=== PATIENT | female | born 1960 | race Caucasian/White ===

== ENCOUNTER → 2016-07-08 | Day surgery (SDC) | payer BC ==
[2016-05-14 08:17] VITALS: BMI 32.0
[2016-06-24 12:01] VITALS: BMI 31.0
[~2016-07-08] VITALS: Ht 157.5 cm; Wt 78.2 kg
[~2016-07-08] MED LIST: CHOL20007 PO; FENTANYL CITRATE INJ 50 MCG/1 ML 2 ML VIAL ONE; LEVO75TA5 PO; LIDOCAINE HCL 2% 2 ML VIAL (20MG/ML) ONE; PROPOFOL IV EMULSION 10 MG/ML 20 ML VIAL IV ONE; SODIUM CHLORIDE 0.9% 500ML 500 ML IV ONE
[2016-07-08 13:12] VITALS: Ht 157.5 cm; Wt 78.2 kg
[2016-07-08 13:21] VITALS: TEMP 36.6
--- NOTE | 2016-07-08 13:58 | Endo History and Physical ---
History & Physical Date of Service: Jul 08, 2016. Chief Complaint: screening Referring Physician: Dr. Garrison History of Present Illness 56 yo CF who presents for screening colonoscopy. Past Surgical History Hx Cardiac Surgery: No Hx Internal Defibrillator: No Hx Pacemaker: No Hx Abdominal Surgery: Yes (HERNIA REPAIR, ) Hx of Implantable Prosthesis: No Hx Post-Op Nausea and Vomiting: No Hx Cancer Surgery: No Hx Thoracic Surgery: No Hx Orthopedic: Yes (RT ULNAR NERVE REPAIR) Hx Urinary Tract Surgery: No Family History None Social History Smoking Status: Never Smoker Hx Substance Use: No Hx Alcohol Use: Yes (RARELY) Allergies Coded Allergies: No Known Allergies (Verified , 06/24/16) Current Medications Reported Home Medications Medications Dose Route/Sig Max Daily Dose Days Date Category Vitamin D3 (Cholecalciferol) 2,000 Unit Tab 4,000 Units PO HS 02/12/16 Reported Levothyroxine Sodium 75 Mcg Tab 75 Mcg PO QAM 02/12/16 Reported Vital Signs Weight (Kilograms): 78.18 Height (Feet): 5 Height (Inches): 2 Date Time Temp Pulse Resp B/P Pulse Ox O2 Delivery O2 Flow Rate FiO2 07/08/16 13:21 36.6 85 18 138/74 94 Room Air Physical Exam General Appearance: WD/WN, no apparent distress Respiratory/Chest: Auscultation: breath sounds normal Cardiovascular: Heart Auscultation: RRR Abdomen: Bowel Sounds: normal Inspection & Palpation: soft, non-distended, no tenderness, guarding & rebound Assessment and Plan Assessment: 56 yo CF who presents for screening colonoscopy. Plan: Proceed with colonoscopy.
--- NOTE | 2016-07-08 14:21 | Discharge Instructions ---
Endoscopy Patient Instructions Date / Procedure(s) Performed Jul 08, 2016. Colonoscopy Allergy Information Coded Allergies: No Known Allergies (Verified , 06/24/16) Discharge Date / Findings Jul 08, 2016. Internal hemorrhoids Medication Instructions OK to resume all medications today as prescribed Reported Home Medications Medications Dose Route/Sig Max Daily Dose Days Date Category Vitamin D3 (Cholecalciferol) 2,000 Unit Tab 4,000 Units PO HS 02/12/16 Reported Levothyroxine Sodium 75 Mcg Tab 75 Mcg PO QAM 02/12/16 Reported Provider Instructions Activity Restrictions - No exercising or heavy lifting for 24 hours. - Do not drink alcohol the day of the procedure. - Do not drive a car or operate machinery until the day after the procedure. - Do not make any important decisions or sign important papers in 24 hours after the procedure. Following Day: - Return to full activity which may include returning to work/school. Diet Start your diet with liquids and light foods (jello, soup, juice, toast). Then eat your usual diet if not nauseated. Treatment For Common After Affects For mild abdominal pain, bloating, or excessive gas: - Rest - Eat lightly - Lie on right side Follow-Up Information Follow-up with Dr. Garrison as scheduled Anesthesia Information What You Should Know You have had a procedure that required some medicine to reduce anxiety and discomfort. This treatment is called moderate sedation. After receiving the treatment, you may be sleepy, but you will be able to breathe on your own. The effects of the treatment may last for several hours. Follow these instructions along with Activity/Diet recommendations noted above: * Do NOT do anything where dizziness or clumsiness would be dangerous. * Rest quietly at home today, then you can be up and about tomorrow. * Have a responsible person stay with you the rest of today. * You may have had an I.V. today. If so, you may take the dressing off later today. Recommendations Call your doctor if: * Trouble breathing * Continuous vomiting for more than 24 hours * Temperature above 101 degrees * Severe abdominal pain or bloating * Pain not relieved by pain medicine ordered * There is increased drainage or redness from any incision * A large amount of rectal bleeding greater than 2-3 tablespoons. (If you had a polyp/s removed or have hemorrhoids, a small amount of blood - from the rectum is to be expected.) * You have any unanswered questions or concerns. IN THE EVENT OF A SERIOUS EMERGENCY, GO TO THE NEAREST EMERGENCY ROOM Your discharge instructions were prepared by provider Marty Araujo. Patient Instructions Signature Page Opal Mcelroy Patient (or Guardian) Signature/Date: I have read and understand the instructions given to me by my caregivers. Caregiver/RN/Doctor Signature/Date: The above-named patient and/or guardian has received patient instructions on this date. + Original Patient Signature Page (only) stays with chart. Please make copy for patient.
--- NOTE | 2016-07-08 14:23 | GI REPORT ---
Procedure Date: 07/08/2016 1:45 PM Procedure: Colonoscopy Indications: Screening for colorectal malignant neoplasm Medicines: Monitored Anesthesia Care Complications: No immediate complications. Estimated Blood Loss: Estimated blood loss: none. Procedure: Pre-Anesthesia Assessment: - Prior to the procedure, a History and Physical was performed, and patient medications and allergies were reviewed. The patient's tolerance of previous anesthesia was also reviewed. The risks and benefits of the procedure and the sedation options and risks were discussed with the patient. All questions were answered, and informed consent was obtained. Prior Anticoagulants: The patient has taken no previous anticoagulant or antiplatelet agents. ASA Grade Assessment: II - A patient with mild systemic disease. After reviewing the risks and benefits, the patient was deemed in satisfactory condition to undergo the procedure. After I obtained informed consent, the scope was passed under direct vision. Throughout the procedure, the patient's blood pressure, pulse, and oxygen saturations were monitored continuously. The scope was introduced through the anus and advanced to the terminal ileum. The colonoscopy was performed without difficulty. The patient tolerated the procedure well. The quality of the bowel preparation was good. The terminal ileum, ileocecal valve, appendiceal orifice, and rectum were photographed. Findings: Non-bleeding internal hemorrhoids were found during retroflexion. The hemorrhoids were small. The exam was otherwise without abnormality. Impression: - Non-bleeding internal hemorrhoids. - The examination was otherwise normal. - No specimens collected. Recommendation: - Resume previous diet. - Continue present medications. - Repeat colonoscopy in 10 years for surveillance. - Return to primary care physician as previously scheduled. Marty Araujo, 07/08/2016 2:24:11 PM This report has been signed electronically. Note Initiated On: 07/08/2016 1:45 PM I attest to the content of the Intraoperative Record and orders documented therein, exceptions below
[2016-07-08 14:52] VITALS: BP 109/75; PULSE 66; O2SAT 96
--- NOTE | 2016-07-08 15:01 | Anesthesiology Progress Note ---
Anesthesia Post Op Note Date & Time Jul 08, 2016 at 15:01 Vital Signs Pain Intensity: 0 Vital Signs Past 12 Hours Date Time Temp Pulse Resp B/P Pulse Ox O2 Delivery O2 Flow Rate FiO2 07/08/16 14:37 77 16 112/79 95 Room Air 07/08/16 14:30 82 16 111/74 95 Room Air 07/08/16 13:21 36.6 85 18 138/74 94 Room Air Notes Mental Status: alert / awake / arousable, participated in evaluation Pt Amnestic to Procedure: Yes Nausea / Vomiting: adequately controlled Pain: adequately controlled Airway Patency, RR, SpO2: stable & adequate BP & HR: stable & adequate Hydration State: stable & adequate Anesthetic Complications: no major complications apparent
== END | disposition home or self-care (01) ==
LOC: C.GI 13:00
PROVIDERS: ATTEND Internal Medicine
DX: Z12.11 Encounter for screening for malignant neoplasm of colon (principal); K64.8 Other hemorrhoids

== ENCOUNTER → 2016-11-18 | Outpatient (CLI) | payer BC ==
[~2016-11-18] MED LIST changes: -FENTANYL CITRATE INJ 50 MCG/1 ML 2 ML VIAL ONE; -LIDOCAINE HCL 2% 2 ML VIAL (20MG/ML) ONE; -PROPOFOL IV EMULSION 10 MG/ML 20 ML VIAL IV ONE; -SODIUM CHLORIDE 0.9% 500ML 500 ML IV ONE
[2016-11-18 16:23] LABS: THYROID STIMULATING HORMONE 0.616 uIu/ml (0.300-4.500)
== END | disposition home or self-care (01) ==
LOC: C.LAB1850 14:40
PROVIDERS: ATTEND Physician Assistant
DX: E03.9 Hypothyroidism, unspecified (principal)

== ENCOUNTER → 2016-12-04 | Outpatient (CLI) | payer BC ==
[2016-12-04 12:17] LABS: BASO % 0.4 %; BASO ABS # 0.03 K/uL (0-0.2); COMPLETE YES; EOS % 1.6 %; HEMATOCRIT 46.2 % (37-47); IG% 0.3 %; LYMPH % 24.4 %; LYMPH ABS # 1.85 K/uL (1.2-3.4); MEAN CELL VOLUME 92.2 fL (80-100); MEAN CORPUSCULAR HEMOGLOBIN 31.1 pg (25-34); MEAN CORPUSCULAR HGB CONC 33.8 g/dl (32-36); MEAN PLATELET VOLUME 10.1 fL (7.4-10.4); MONO % 7.1 %; NEUT % 66.2 %; PLATELET COUNT 356 K/uL (130-400); RED BLOOD COUNT 5.01 M/uL (4.2-5.4); WHITE BLOOD COUNT 7.58 K/uL (4.8-10.8)
[2016-12-04 12:30] LABS: ESTIMATED AVERAGE GLUCOSE 111 mg/dl; HA1C FLAG Normal (Normal)
[2016-12-04 12:47] LABS: ALT/SGPT 26 U/L (12-78); AST/SGOT 20 U/L (15-37); BLOOD UREA NITROGEN 10 mg/dl (7-18); BUN/CREATININE RATIO 13.1 (10-20); CALCIUM 9.7 mg/dl (8.5-10.1); CARBON DIOXIDE 29 mmol/L (21-32); CHLORIDE 108 mmol/L (98-107); CREATININE 0.74 mg/dl (0.60-1.20); GLUCOSE 86 mg/dl (70-99); MAGNESIUM 2.4 mg/dl (1.8-2.4); POTASSIUM 3.7 mmol/L (3.5-5.1); SODIUM 143 mmol/L (136-145)
[2016-12-04 12:52] LABS: ALB/GLOB RATIO 1.1 (0.9-2); ALKALINE PHOSPHATASE 68 U/L (45-117); CHOLESTEROL 196 mg/dl (0-200); CHOLESTEROL/HDL RATIO 3.7; HDL CHOLESTEROL 53 mg/dl; LDL CHOLESTEROL CALCULATED 117 mg/dl; TRIGLYCERIDES 129 mg/dl (0-150); VERY LOW DENSITY LIPOPROT CALC 26 mg/dl
== END | disposition home or self-care (01) ==
LOC: C.LAB1850 11:22
PROVIDERS: ATTEND Nurse Practitioner Adult Health
DX: Z00.00 Encounter for general adult medical examination without abnormal findings (principal); R20.0 Anesthesia of skin; E55.9 Vitamin D deficiency, unspecified; R29.898 Other symptoms and signs involving the musculoskeletal system; Z11.59 Encounter for screening for other viral diseases; Z86.19 Personal history of other infectious and parasitic diseases

== ENCOUNTER → 2017-01-27 | Outpatient (CLI) | payer BC | END | disposition home or self-care (01) | LOC: C.CPL 15:03 | PROVIDERS: ATTEND Orthopaedic Surgery | DX: S83.242D Other tear of medial meniscus, current injury, left knee, subsequent encounter (principal); X58.XXXD Exposure to other specified factors, subsequent encounter ==

== ENCOUNTER → 2017-04-09 | Outpatient (CLI) | payer BC ==
[2017-04-09 17:07] LABS: THYROID STIMULATING HORMONE 1.56 uIu/ml (0.300-4.500)
== END | disposition home or self-care (01) ==
LOC: C.LAB1850 15:21
PROVIDERS: ATTEND Physician Assistant
DX: E03.9 Hypothyroidism, unspecified (principal)

== ENCOUNTER 2019-10-21 11:14 | Inpatient (IN) ==
--- NOTE | 2019-10-02 14:12 | PAT Medication Instructions ---
Medication Instructions Date of Service October 02, 2019 Home Medications Medication Instructions Recorded duloxetine 60 mg capsule,delayed 60 mg PO QAM #90 cap 09/29/19 release cholecalciferol (vitamin D3) 50 mcg (2,000 unit) tablet 4,000 units PO QAM cyanocobalamin (vitamin B-12) 1,000 mcg capsule 1,000 mcg PO QAM acetaminophen [Tylenol] 650 mg PO DIRECTED PRN duloxetine 60 mg capsule,delayed release 60 mg PO QAM levothyroxine 50 mcg PO Q OTHER DAY levothyroxine 75 mcg PO Q OTHER DAY magnesium chloride [Slow-Mag] 71.5 mg PO DAILY zaleplon 10 mg PO DAILY PRN DO NOT take the morning of surgery magnesium chloride [Slow-Mag] 71.5 mg PO DAILY cholecalciferol (vitamin D3) 50 mcg (2,000 unit) tablet 4,000 units PO QAM cyanocobalamin (vitamin B-12) 1,000 mcg capsule 1,000 mcg PO QAM Take morning of surgery With a small sip of water, OTHERWISE NOTHING TO EAT OR DRINK AFTER MIDNIGHT: levothyroxine acetaminophen [Tylenol] 650 mg PO DIRECTED PRN (okay to take up to 4 hours prior to surgery if needed) duloxetine 60 mg capsule,delayed release 60 mg PO QAM Take evening before surgery acetaminophen [Tylenol] 650 mg PO DIRECTED PRN (if needed) zaleplon 10 mg PO DAILY PRN (if needed) Other Notes If you have any questions please call us at [phone] or [phone] or [phone] or [phone]
--- NOTE | 2019-10-04 08:59 | Anesthesiology Consultation ---
Date of Service October 04, 2019 Assessment & Plan (1) Encounter for pre-operative examination: Chart Review Chart Review: Acceptable Risk for Surgery (pending PCP clearance (seen 09/28- PCP awaiting preop testing) and Covid testing 10/17) and Patient seen in Pre Admission Testing Pt states she has Covid testing three days (10/17) prior to surgery. Educated on social distancing and to quarantine herself and household members. Teaching & Discussion Pre-Anesthesia Teaching/Discussion Notes: Instructed NPO after midnight before surgery,except medications with 15 cc of water. Medication instructions provided according to the PAT guidelines. History Surgery Operation Date: 10/21/19 10:10 Proposed Procedures p Right Total Knee Arthroplasty - Rashaad Menendez MD Height/Weight Height: 5 ft 1 in Weight: 80.2 kg Allergies Allergy/AdvReac Type Severity Reaction Status Date / Time No Known Drug Allergies Allergy Verified 10/01/19 14:21 Medications Home Medications Medication Instructions Recorded Confirmed Last Taken cholecalciferol (vitamin D3) 50 4,000 units PO QAM tab 11/27/18 10/01/19 02/04/19 mcg (2,000 unit) tablet cyanocobalamin (vitamin B-12) 1,000 mcg PO QAM #30 cap 11/27/18 10/01/19 02/04/19 1,000 mcg capsule acetaminophen [Tylenol] 650 mg PO DIRECTED PRN 02/03/19 10/01/19 Unknown duloxetine 60 mg capsule,delayed 60 mg PO QAM #90 cap 09/29/19 10/01/19 Unknown release levothyroxine 50 mcg PO Q OTHER DAY 10/01/19 10/01/19 Unknown levothyroxine 75 mcg PO Q OTHER DAY 10/01/19 10/01/19 Unknown magnesium chloride [Slow-Mag] 71.5 mg PO DAILY 10/01/19 10/01/19 Unknown zaleplon 10 mg PO DAILY PRN 10/01/19 10/01/19 Unknown Past Medical History Medical History Chronic back pain Hepatitis B DX 20 YRS AGO CARRIER FOR HEPATITIS B- DENIES KNOWN HEP B INFECTION History of depression Hypothyroidism TMJ click NO JAW LOCKING Exercise / Class Metabolic Activity II 4-5 Yardwork/Stairs/Walk up hill (ONE FLIGHT STAIRS - NO CHEST PAIN OR SOB ) Past Family History Family History Unknown Hypertension Stroke Myocardial infarction FHx: allergies Sinusitis Cardiac disorder Hypothyroidism Father , Mid 50's Kidney stones FHx: kidney cancer Hypertension Stroke Myocardial infarction Grandmother No problems noted. Grandmother (Maternal) Breast cancer Denies family history of Ovarian cancer Prostate cancer Colorectal cancer Past Surgical History Surgical History H/O section H/O hernia repair H/O tubal ligation History of arthroscopy BILAT KNEES History of colonoscopy Hx of biopsy THYROID Hx of biopsy LIVER Hx of decompression of ulnar nerve RIGHT [place] with [place] of [place] [facility] [place] Anesthesia History No Hx of Anesthesia Complications and No Family Hx of Anesthesia Complications (BROTHER SLOW TO WAKE- NO RE-INTBUATION OR ICU STAY ) History of PONV No Hx of PONV and No Hx of Motion Sickness Social History Smoking Status: Never smoker Do You Dip or Chew Tobacco: No Hx Alcohol Use: Yes alcohol intake frequency: holidays/special occasions only Hx Substance Use: No substance use type: does not use Review of Systems REFLUX- ONLY AT NIGHT IF EATING LATE SNORING- NO WITNESSED APNEA - NO HX OF SLEEP STUDY Patient denies chest pain, shortness of breath, dyspnea on exertion, cough, wheezing, palpitations. No hx of seizures, stroke, [place]. No hx of blood clots or blood transfusions Physical Exam Vital Signs VITALS BP 113/77 P 85 TEMP 98.2 SP02 97% RESP 16 Constitutional no acute distress ENMT Mouth: no TMJ clicking Thyromental Distance: > or= 3.5 Finger Breadths (3.5) Mallampati Class: III Crowns to molars and side teeth- no front teeth capped or crowned. Denies missing teeth Neck neck extension not limited Respiratory normal respiratory effort; no respiratory distress Auscultation: lungs clear to auscultation bilaterally; no wheezes Cardiovascular Rate/Rhythm: regular rate and regular rhythm Heart Sounds: no murmur Vessels: no carotid bruit Musculoskeletal Spine: no pain with cervical ROM Neurologic moves all extremities Psychiatric Orientation: alert Testing Laboratory Results 10/04/19 09:15 10/04/19 09:15 PT 10.9 Seconds (9.0-12.0) 10/04/19 09:15 INR 1.0 (0.9-1.1) 10/04/19 09:15 APTT 29.6 Seconds (21.0-31.0) 10/04/19 09:15 Hemoglobin A1c 5.7 % (4.5-5.6) H 10/04/19 09:15 Urine Color Yellow 10/04/19 09:15 Urine Appearance Clear (Clear) 10/04/19 09:15 Urine pH 5.5 (4.5-7.5) 10/04/19 09:15 Ur Specific [place] 1.028 (1.000-1.030) 10/04/19 09:15 Urine Protein Negative (Negative) 10/04/19 09:15 Urine Glucose (UA) Negative (Negative) 10/04/19 09:15 Urine Ketones Negative (Negative) 10/04/19 09:15 Urine Nitrite Negative (Negative) 10/04/19 09:15 Ur Leukocyte Esterase Negative (Negative) 10/04/19 09:15 Blood Type O Positive 10/04/19 09:15 Antibody Screen NEGATIVE 10/04/19 09:15 Electrocardiogram Date: 09/29/19 Findings: + NSR @ (86) Chest X-Ray Date: 10/04/19 Findings: + NAD Stress Test Date: 11/29/14 Type: exercise (Stress ECHO) Resting EF: 60% Resting LV Function: normal Resting RWMA: + none Valvular Disease: no significant valvular disease 10.8 METS achieved. MPHR= 100%. Normal stress ECHO. No EKG changes. No exercise induced chest pain. Normal baseline ECHO.
[2019-10-04 09:40] LABS: Appearance Urine Clear (Clear); Basophils # (auto) 0.03 K/uL (0-0.2); Basophils % (auto) 0.6 %; Bilirubin Urine Negative (Negative); Blood Urine Negative (Negative); Color Urine Yellow; Eosinophils # (auto) 0.12 K/uL (0-0.5); Eosinophils % (auto) 2.2 %; Glucose Urine UA Negative (Negative); Hematocrit (blood only) 42.6 % (37-47); Hemoglobin 14.2 g/dL (12.0-16.0); Immature Granulocytes # (auto) 0.02 K/uL (0.00-0.02); Immature Granulocytes % (auto) 0.4 %; Ketones Urine Negative (Negative); Leukocyte Esterase Urine Negative (Negative); Lymphocytes # (auto) 1.38 K/uL (1.2-3.4); Lymphocytes % (auto) 25.3 %; Mean Corpuscular Hemoglobin 30.7 pg (25-34); Mean Corpuscular Hgb Conc 33.3 g/dL (32-36); Mean Platelet Volume 9.9 fL (7.4-10.4); Monocytes # (auto) 0.38 K/uL (0.11-0.59); Neutrophils # (auto) 3.52 K/uL (1.4-6.5); Neutrophils % (auto) 64.5 %; Nitrite Urine Negative (Negative); Platelet Count 311 K/uL (130-400); Protein Urine Negative (Negative); RDW Coefficient of Variation 13.1 % (11.5-14.5); RDW Standard Deviation 44.4 fL (36.4-46.3); Red Blood Count 4.63 M/uL (4.2-5.4); Specific Gravity Urine 1.028 (1.000-1.030); Urobilinogen Urine Negative (Negative); White Blood Count 5.45 K/uL (4.8-10.8); pH Urine 5.5 (4.5-7.5)
--- NOTE | 2019-10-04 09:43 | XRay Report ---
XR chest Pre-admission PA/Lat CLINICAL HISTORY: Preoperative evaluation. COMPARISON STUDY: No previous studies for comparison. FINDINGS: Lung volumes are normal. Lungs are clear. There is no pneumothorax or pleural effusion. Car diac size is normal. Mediastinal contours are normal. There is no evidence for pulmonary edema. IMPRESSION: No acute cardiopulmonary findings. ACT 112: Negative or not required by law. Electronically signed by: Asif Reynoso M.D. 10/04/2019 9:41 AM
[2019-10-04 09:52] LABS: Partial Thromboplastin Ratio 1.1; Partial Thromboplastin Time 29.6 Seconds (21.0-31.0); Prothrombin Time 10.9 Seconds (9.0-12.0)
[2019-10-04 10:04] LABS: Albumin Level 3.6 gm/dl (3.4-5.0); BUN Creatinine Ratio 19.3 (10-20); Calcium 8.6 mg/dl (8.5-10.1); Creatinine Clr Calc Pharmacy 76.3 ml/min; Est GFR (African American) 97.8; Est GFR (Non-African American) 84.4; Potassium 3.8 mmol/L (3.5-5.1)
[2019-10-04 10:13] LABS: Estimated Average Glucose 117 mg/dl; Hemoglobin A1C 5.7 % (4.5-5.6)
--- NOTE | 2019-10-15 13:49 | History & Physical Report ---
Date of Service October 15, 2019 Assessment & Plan (1) Primary osteoarthritis of right knee: Treatment options discussed. Patient has failed conservative measures as above. Risks, benefits and alternatives to surgery including but not limited to infection, DVT, pain, stiffness, need for revision surgery, damage to blood vessels, damage to nerves, PE, , were discussed with the patient and they wish to proceed. Plan will be for right total knee arthroplasty at [facility] on 10/21/19. COVID testing will be completed preoperatively. Plan for aspirin 81mg BID x 1 mo post operatively as DVT prophylaxis. Will plano n HHPT upon discharge from the hospital. All questions answered. She will follow up post operatively. History of Present Illness Chief Complaint: Right knee pain Primary Care Provider: Percy Mario III, PART[employer] DEM[employer]STRATOR 59 year old female with PMHx significant for hypothyroidism, back pain, and diagnosed as carrier of Hep B who presents with ongoing right knee pain. She has failed conservative measures including injections, rehab, and anti- inflammatories. Pain is affecting her ability to carry out her daily activities. She would like to proceed with right knee replacement. Patient denies headaches, sweats, fevers, chills, double vision, blurred vision, cough, sore throat, dysphagia, chest pain, sob, wheezing, n/v/d/c, numbness, tingling, fatigue, urinary symptoms, mood disorders. ROS positive for right knee pain and stiffness. Allergies Allergy/AdvReac Type Severity Reaction Status Date / Time No Known Drug Allergies Allergy Verified 10/01/19 14:21 Home Medications Home Medications Medication Instructions Recorded Confirmed Type cholecalciferol (vitamin D3) 50 4,000 units PO QAM tab 11/27/18 10/01/19 History mcg (2,000 unit) tablet cyanocobalamin (vitamin B-12) 1,000 mcg PO QAM #30 cap 11/27/18 10/01/19 History 1,000 mcg capsule acetaminophen [Tylenol] 650 mg PO DIRECTED PRN 02/03/19 10/01/19 History duloxetine 60 mg capsule,delayed 60 mg PO QAM #90 cap 09/29/19 10/01/19 Rx release levothyroxine 50 mcg PO Q OTHER DAY 10/01/19 10/01/19 History levothyroxine 75 mcg PO Q OTHER DAY 10/01/19 10/01/19 History magnesium chloride [Slow-Mag] 71.5 mg PO DAILY 10/01/19 10/01/19 History zaleplon 10 mg PO DAILY PRN 10/01/19 10/01/19 History Past Med/Surg History Medical History Chronic back pain Hepatitis B DX 20 YRS AGO CARRIER FOR HEPATITIS B- DENIES KNOWN HEP B INFECTION History of depression Hypothyroidism TMJ click NO JAW LOCKING Surgical History H/O section H/O hernia repair H/O tubal ligation History of arthroscopy BILAT KNEES History of colonoscopy Hx of biopsy THYROID Hx of biopsy LIVER Hx of decompression of ulnar nerve RIGHT Status post myringotomy with insertion of tube 02/05/2019 [facility] [place] Family History Unknown Hypertension Stroke Myocardial infarction FHx: allergies Sinusitis Cardiac disorder Hypothyroidism Father , Mid 50's Kidney stones FHx: kidney cancer Hypertension Stroke Myocardial infarction Grandmother No problems noted. 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 [employer] Feels Safe at Home: Yes Safety Concerns: Feels Safe At This Time Smoking Status: Never smoker Do You Dip or Chew Tobacco: No ; Second Hand Exposure: No ; Hx Alcohol Use: Yes Hx Substance Use: No Childhood Exposure to Second-Hand Smoke: No Dental Care, Regularly: Yes Physical Activity Frequency: 5-6 Times per Week Seatbelt Use: always Sunscreen Use: Yes Review of Systems All systems reviewed & are unremarkable except as noted in HPI & below Physical Exam Constitutional: well developed and well nourished; no acute distress Eyes: PERRL, conjunctivae normal, anicteric sclerae ENMT: external ear and nose normal, oropharynx normal Neck: trachea midline, no thyromegaly Respiratory: normal respiratory effort, lungs clear to auscultation Cardiovascular: RRR, no murmur, no edema Musculoskeletal: right knee: Medial joint line tenderness, mild effusion. ROM 1-125. Stable to valgus and varus stress. Positive Dl's. Skin: no rashes, warm and dry Neurologic: patellar DTR's 2+ bilat, sensation intact Psychiatric: A+Ox3, euthymic affect Results & Data Laboratory Results Lab Results 10/04/19 10/04/19 10/04/19 Range/Units 09:15 09:15 09:15 WBC 5.45 (4.8-10.8) K/uL RBC 4.63 (4.2-5.4) M/uL Hgb 14.2 (12.0-16.0) g/dL Hct 42.6 (37-47) % MCV 92.0 (80-100) fL MCH 30.7 (25-34) pg MCHC 33.3 (32-36) g/dL RDW Std Deviation 44.4 (36.4-46.3) fL RDW Coeff of Wilian 13.1 (11.5-14.5) % Plt Count 311 (130-400) K/uL MPV 9.9 (7.4-10.4) fL Immature Gran % (Auto) 0.4 % Neut % (Auto) 64.5 % Lymph % (Auto) 25.3 % [place] % (Auto) 7.0 % Eos % (Auto) 2.2 % Baso % (Auto) 0.6 % Immature Gran # (Auto) 0.02 (0.00-0.02) K/uL Neut # (Auto) 3.52 (1.4-6.5) K/uL Lymph # (Auto) 1.38 (1.2-3.4) K/uL [place] # (Auto) 0.38 (0.11-0.59) K/uL Eos # (Auto) 0.12 (0-0.5) K/uL Baso # (Auto) 0.03 (0-0.2) K/uL PT 10.9 (9.0-12.0) Seconds INR 1.0 (0.9-1.1) APTT 29.6 (21.0-31.0) Seconds PTT Ratio 1.1 Sodium 140 (136-145) mmol/L Potassium 3.8 (3.5-5.1) mmol/L Chloride 110 H (98-107) mmol/L Carbon Dioxide 26 (21-32) mmol/L Anion Gap 4.0 (3-11) BUN 15 (7-18) mg/dl Creatinine 0.78 (0.6-1.2) mg/dl Est Cr Clr Drug Dosing 76.3 ml/min Est GFR ( Amer) 97.8 Est GFR (Non-Af Amer) 84.4 BUN/Creatinine Ratio 19.3 (10-20) Glucose 97 (70-99) mg/dl Estimat Average Glucose mg/dl Hemoglobin A1c (4.5-5.6) % Calcium 8.6 (8.5-10.1) mg/dl Albumin 3.6 (3.4-5.0) gm/dl Urine Color Urine Appearance (Clear) Urine pH (4.5-7.5) Ur Specific [place] (1.000-1.030) Urine Protein (Negative) Urine Glucose (UA) (Negative) Urine Ketones (Negative) Urine Blood (Negative) Urine Nitrite (Negative) Urine Bilirubin (Negative) Urine Urobilinogen (Negative) Ur Leukocyte Esterase (Negative) Blood Type Antibody Screen 10/04/19 10/04/19 10/04/19 Range/Units 09:15 09:15 09:15 WBC (4.8-10.8) K/uL RBC (4.2-5.4) M/uL Hgb (12.0-16.0) g/dL Hct (37-47) % MCV (80-100) fL MCH (25-34) pg MCHC (32-36) g/dL RDW Std Deviation (36.4-46.3) fL RDW Coeff of Wilian (11.5-14.5) % Plt Count (130-400) K/uL MPV (7.4-10.4) fL Immature Gran % (Auto) % Neut % (Auto) % Lymph % (Auto) % [place] % (Auto) % Eos % (Auto) % Baso % (Auto) % Immature Gran # (Auto) (0.00-0.02) K/uL Neut # (Auto) (1.4-6.5) K/uL Lymph # (Auto) (1.2-3.4) K/uL [place] # (Auto) (0.11-0.59) K/uL Eos # (Auto) (0-0.5) K/uL Baso # (Auto) (0-0.2) K/uL PT (9.0-12.0) Seconds INR (0.9-1.1) APTT (21.0-31.0) Seconds PTT Ratio Sodium (136-145) mmol/L Potassium (3.5-5.1) mmol/L Chloride (98-107) mmol/L Carbon Dioxide (21-32) mmol/L Anion Gap (3-11) BUN (7-18) mg/dl Creatinine (0.6-1.2) mg/dl Est Cr Clr Drug Dosing ml/min Est GFR ( Amer) Est GFR (Non-Af Amer) BUN/Creatinine Ratio (10-20) Glucose (70-99) mg/dl Estimat Average Glucose 117 mg/dl Hemoglobin A1c 5.7 H (4.5-5.6) % Calcium (8.5-10.1) mg/dl Albumin (3.4-5.0) gm/dl Urine Color Yellow Urine Appearance Clear (Clear) Urine pH 5.5 (4.5-7.5) Ur Specific [place] 1.028 (1.000-1.030) Urine Protein Negative (Negative) Urine Glucose (UA) Negative (Negative) Urine Ketones Negative (Negative) Urine Blood Negative (Negative) Urine Nitrite Negative (Negative) Urine Bilirubin Negative (Negative) Urine Urobilinogen Negative (Negative) Ur Leukocyte Esterase Negative (Negative) Blood Type O Positive Antibody Screen NEGATIVE Diagnostic Findings Right knee radiographs: Significant joint space narrowing medial compartment with periarticular osteophyte formation and subchondral sclerosis. Degenerative changes patellofemoral compartment.
[~2019-10-21 11:14] MED LIST changes: +ACETAMINOPHEN 500 MG TAB PO SCH; +BUPIVACAINE 0.5 % 5 MG/1 ML PF 10ML VIAL ONE; +CEFAZOLIN 2000MG 2,000 MG/15 ML SYR IV SCH; -CHOL20007 PO; +CeleBREX 200 MG CAP PO SCH; +FAMOTIDINE 20 MG TAB PO SCH; +GABAPENTIN 600 MG DOSE PO SCH; -LEVO75TA5 PO; +LR 500ML BOLUS, THEN 15ML/HR IV SCH; +METOCLOPRAMIDE HCL 10 MG TABLET PO SCH; +TRANEXAMIC ACID 1,000 MG **IV Intra-op IV SCH; +TRANEXAMIC ACID 1,000 MG **IV Pre-op IV SCH; +dexAMETHasone 4 MG TAB PO SCH
--- NOTE | 2019-10-21 12:20 | History & Physical Bridge Note ---
Date of Service October 21, 2019 History & Physical Bridge Note I have examined the patient, reviewed the History & Physical and in the interval since the performance of the History & Physical I have noted the following changes of clinical significance: no changes noted
[2019-10-21] MEDS ORDERED: BACITRACIN INJ 50,000 UNIT VIAL ONE (13:09)
[2019-10-21] MEDS ORDERED: fentaNYL citrate 100 MCG/2 ML VIAL ONE ×2 (13:09→15:25)
[2019-10-21] MEDS ORDERED: MIDAZOLAM HCL 1 MG/ML 2ML VIAL ONE (13:09)
[2019-10-21] MEDS ORDERED: fentaNYL citrate 100 MCG/2 ML VIAL IV PRN (13:14)
[2019-10-21] MEDS ORDERED: ePHEDrine sulfate 50 MG/ML AMP IV PRN (13:14)
[2019-10-21] MEDS ORDERED: ATROPINE SULFATE 0.1 MG/ML 10ML SYR IV PRN (13:14)
[2019-10-21] MEDS ORDERED: ONDANSETRON INJ 2 MG/ML 2 ML VIAL IV PRN ×2 (13:14→16:32)
[2019-10-21] MEDS ORDERED: ROPIVACAINE 0.5% HCL/PF 150 MG, BUPIVACAINE 0.5% MPF 30 ML, EPINEPHrine 30MG/30ML (OR U... INFIL SCH (14:00)
[2019-10-21] MEDS ORDERED: LIDOCAINE HCL 2% 2 ML VIAL/AMP(20MG/ML) INFIL ONE (14:20)
[2019-10-21] MEDS ORDERED: PROPOFOL IV EMULSION 10 MG/ML 20 ML VIAL IV ONE (14:20)
--- NOTE | 2019-10-21 15:29 | Operative Report ---
Post Operative Report Pre & Post Diagnosis Operation Date: 10/21/19 14:05 Pre-Op Diagnosis: Right Knee Osteoarthritis Post-Op Diagnosis: Right Knee Osteoarthritis I identified the patient and participated in the time-out.: Yes Procedure Operation Date: 10/21/19 14:05 Actual Procedures p Right Total Knee Arthroplasty(Right) - Rashaad Menendez MD Surgeon Rashaad Menendez MD Auriculotherapist Tyrone Schumacher PA-C Estimated Blood Loss 20 Findings Consistent with Post-Op Diagnosis Specimens Bone and tissue Drains None Anesthesia Type MAC Spinal Regional Complications none Disposition Accompanied Patient To Recovery: No Disposition: Recovery Room Indications Patient is a 59-year-old female osteoarthritic change in the right knee. She is near [id number] medial compartment with arthritic change and osteophyte formation near the department. She is failed conservative measures including injection, anti-inflammatory medications, physical therapy. She wishes to proceed with a right total knee arthroplasty. Description of Procedure Risks benefits and alternatives of surgery including but not limited to infect ion, DVT, pain, stiffness, need for surgery, damage to blood vessels, damage to nerves or risks of anesthesia were discussed with the patient and they wished to proceed. The patient was identified and the laterality was confirmed and marked. They received a preoperative antibiotic as well as a spinal anesthetic and an abductor canal block. A well-padded tourniquet was applied and then the limb was prepped and draped in standard manner with ChloraPrep. The limb was exsanguinated and the tourniquet was inflated. I made a standard anterior incision. I sharply incised the skin then utilized Bovie electrocautery to achieve hemostasis. I made a medial parapatellar arthrotomy and mobilized the patella laterally. I then excised the anterior horns of the medial and lateral meniscus as well as the infrapatellar fat pad. I elevated a portion of the MCL off of the tibia. I then pinned into place a patient-matched distal femoral cutting guide and made my distal femoral resection. I then pinned into place the 5 in 1 femoral cutting guide. I made my anterior, posterior and chamfer cuts. I then excised the cruciates and the remaining portions of the menisci. I then pinned into place a patient- matched tibial cutting guide and made my tibial resection. I then pinned into place the tibial plate a utilizing alignment loretta to confirm rotation. The tibial plate was sitting a little high on the lateral side. We placed the tibial cutting guide into position medially revision tibial cut. The plate then sat flush onto the tibia. I then cut for the post. Utilizing a lamina metal cabinet finisher and I then removed posterior osteophytes off the femur. I then placed a trial femur into position and cut for the trochlear component. I then sequentially trialed to size the polyethylene until there was good soft tissue balancing and range of motion. I then prepared the patella with a freehand cut utilizing sagittal saw. I sized and drilled for the patella. There was good tracking to the patella no lateral release was needed. All the trial components were removed. The deep tissues were anesthetized with an ortho mix solution. Then with Simplex HV with gentamicin cement, I cemented my definitive components. Definitive components, Rizvi and Nephew Tim 2: Femur 3 Tibia 2 Poly 13 Patella 29 round A betadine soak was performed. The arthrotomy was closed with interrupted #1 Vicryl suture subcutaneous tissue was closed with interrupted 2-0 Vicryl suture. The skin was closed with with joao. An Acticoat and Jose L dressing were placed. Sterile dressings were applied. All needle and sponge counts were correct at the end of the procedure patient was transferred to the PACU in stable condition without apparent complication. The PA-C was necessary for assistance with procedure for assistance in positioning, prepping, draping, retraction and closure. I attest to the content of the Intraoperative Record and any orders documented therein. Any exceptions are noted below.
--- NOTE | 2019-10-21 16:19 | XRay Report ---
XR knee RT 1 or 2V routine CLINICAL HISTORY: Surgical Post Op COMPARISON: 02/12/2016 DISCUSSION: Anatomic alignment post total right knee arthroplasty. Could contact between prosthetic a nd underlying bone. Expected postoperative soft tissue change. IMPRESSION: Anatomic alignment post total right knee arthroplasty. ACT 112: Negative or not required by law. The above report was generated using voice recognition software. It may contain grammatical, syntax or spelling errors. Electronically signed by: Mark Mcdonald M.D. 10/21/2019 4:17 PM
--- NOTE | 2019-10-21 16:21 | Anesthesiology Progress Note ---
Date of Service October 21, 2019 Anesthesia Post Procedure Vital Signs Vital Signs: Temp Pulse Pulse Resp BP BP Pulse Ox 10/21/19 16:15 97.3 F L 75 13 135/80 95 10/21/19 16:10 97 H 16 135/80 92 10/21/19 16:00 104 H 24 123/73 92 10/21/19 15:51 97.5 F L 113 H 16 132/93 98 10/21/19 12:28 84 20 127/86 98 10/21/19 11:48 98.4 F 95 H 20 151/80 H 97 Pain Intensity Right Knee: Pain Intensity: 0 Transfer of Care Handoff Completed per policy Notes Mental Status: alert / awake / arousable and participated in evaluation Patient Amnestic to Procedure: Yes Nausea / Vomiting: adequately controlled Pain: adequately controlled Airway Patency, RR, SpO2: stable & adequate BP & HR: stable & adequate Hydration State: stable & adequate Neuraxial Anesthesia: was administered and sensory block is resolving Anesthetic Complications: no major complications apparent and Pt Satisfied with anesthetic care
[2019-10-21] MEDS ORDERED: NALOXONE HCL 0.4 MG/1 ML VIAL/CARP IV PRN (16:32)
[2019-10-21] MEDS ORDERED: HYDROmorphone INJ 0.5 MG/0.5 ML SYR IV PRN (16:32)
[2019-10-21] MEDS ORDERED: MAGNESIUM HYDROXIDE SUSP 30 ML UDC PO PRN (16:32)
[2019-10-21] MEDS ORDERED: ZALEPLON 5 MG CAPSULE PO PRN (16:32)
[2019-10-21] MEDS ORDERED: bisacodyL 10 MG SUPP PR PRN (16:32)
[2019-10-21] MEDS ORDERED: METOCLOPRAMIDE HCL INJ 5 MG/ML 2 ML VIAL IV PRN (16:32)
[2019-10-21] MEDS: SODIUM CHLORIDE 0.9% 1000ML 1,000 ML IV SCH (19:22)
[2019-10-21] MEDS: DOCUSATE SODIUM 100 MG CAP PO SCH (20:02)
[2019-10-21] MEDS: ASPIRIN 81 MG ECTAB PO SCH (20:04)
[2019-10-21] MEDS: CeleBREX 200 MG CAP PO SCH (20:05)
[2019-10-21] MEDS ORDERED: SENNA 8.6 MG TAB PO SCH (21:00)
[2019-10-21] MEDS: ACETAMINOPHEN 500 MG TAB PO SCH (22:02)
[2019-10-21] MEDS: CEFAZOLIN 1000MG 1,000 MG/7.5 ML SYR IV SCH (22:50)
[2019-10-22] MEDS: OXYCODONE HCL IR 5 MG TAB (IMMEDIATE RELEASE) PO PRN ×2 (01:56→11:26)
[2019-10-22] MEDS: SODIUM CHLORIDE 0.9% 1000ML 1,000 ML IV SCH (02:36)
[2019-10-22 05:50] LABS: Hematocrit (blood only) 38.7 % (37-47); Mean Corpuscular Hemoglobin 30.6 pg (25-34); Mean Corpuscular Hgb Conc 33.6 g/dL (32-36); Mean Corpuscular Volume 91.1 fL (80-100); Mean Platelet Volume 9.9 fL (7.4-10.4); Platelet Count 326 K/uL (130-400); RDW Coefficient of Variation 12.8 % (11.5-14.5); RDW Standard Deviation 42.8 fL (36.4-46.3); Red Blood Count 4.25 M/uL (4.2-5.4); White Blood Count 18.51 K/uL (4.8-10.8)
[2019-10-22] MEDS: CEFAZOLIN 1000MG 1,000 MG/7.5 ML SYR IV SCH (06:23)
[2019-10-22] MEDS: ACETAMINOPHEN 500 MG TAB PO SCH (06:23)
[2019-10-22 06:26] LABS: Calcium 9.1 mg/dl (8.5-10.1); Creatinine Clr Calc Pharmacy 77.9 ml/min; Est GFR (African American) 102.6; Est GFR (Non-African American) 88.5; Potassium 3.7 mmol/L (3.5-5.1)
[2019-10-22] MEDS ORDERED: LEVOTHYROXINE SODIUM 75 MCG TABLET PO SCH (06:30)
--- NOTE | 2019-10-22 07:26 | Orthopedic Progress Note ---
Date of Service October 22, 2019 Assessment & Plan (1) Primary osteoarthritis of right knee: POD#1 Right TKA -Pain management -PT/OT -DVT prophylaxis-SCDs, TEDs, ASA 81mg BID x 30 days -AM labs hemoglobin at 12.6 from 14.2 preop. WC at 18 likely due to intraoperative and preoperative steroids. -D/C planning-home with HHPT likely later today as long as labs stable and PT goes well. Admission and Anticipated Discharge Date Admission Date: October 21, 2019 Subjective Patient resting in bed comfortably, pain well controlled. No complaints. Denies chest pain, sob,dizziness, light headedness, n/v. Review of Systems Review of Systems: All systems reviewed & are unremarkable except as noted in HPI & below Physical Exam Physical Exam: Right knee to dressing is c/d/i, no calf tenderness, toes mobile, good dorsiflexion. Distally n/v status and sensation intact. Constitutional: well developed and well nourished; no acute distress Results & Data ([facility]) Vital Signs (Past 12 Hours) Vital Signs Temp Pulse Resp BP Pulse Ox 10/22/19 03:49 36.8 C 87 16 111/72 94 10/21/19 23:41 36.5 C 104 H 18 118/75 91 10/21/19 19:23 36.5 C 110 H 18 118/76 95 Laboratory Results H & H 10/04/19 10/22/19 Range/Units 09:15 05:20 Hgb 14.2 13.0 (12.0-16.0) g/dL Hct 42.6 38.7 (37-47) % Coagulation 10/04/19 Range/Units 09:15 INR 1.0 (0.9-1.1)
[2019-10-22] MEDS ORDERED: MAGNESIUM CHLORIDE 64MG DELAYED REL TAB PO SCH (09:00)
[2019-10-22] MEDS ORDERED: DULOXETINE HCL 60 MG CAP PO SCH (09:00)
[2019-10-22] MEDS ORDERED: CHOLECALCIFEROL 1,000 UNITS 25 MCG TAB PO SCH (09:00)
[2019-10-22] MEDS ORDERED: CYANOCOBALAMIN 500 MCG TABLET (VITAMIN B-12) PO SCH (09:00)
[2019-10-22] MEDS ORDERED: MULTIVITAMIN TAB PO SCH (09:00)
[2019-10-22] MEDS: DOCUSATE SODIUM 100 MG CAP PO SCH (09:28)
[2019-10-22] MEDS: ASPIRIN 81 MG ECTAB PO SCH (09:28)
[2019-10-22] MEDS: CeleBREX 200 MG CAP PO SCH (10:24)
--- NOTE | 2019-10-22 17:48 | Discharge Summary ---
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 She has failed conservative measures including injections, rehab, and anti- inflammatories. Pain is affecting her ability to carry out her daily activities. She would like to proceed with right knee replacement. Patient denies headaches, sweats, fevers, chills, double vision, blurred vision, cough, sore throat, dysphagia, chest pain, sob, wheezing, n/v/d/c, numbness, tingling, fatigue, urinary symptoms, mood disorders. ROS positive for right knee pain and stiffness. Admission Exam Per Admitting Provider Constitutional: well developed and well nourished; no acute distress Eyes: PERRL, conjunctivae normal, anicteric sclerae ENMT: external ear and nose normal, oropharynx normal Neck: trachea midline, no thyromegaly Respiratory: normal respiratory effort, lungs clear to auscultation Cardiovascular: RRR, no murmur, no edema Musculoskeletal: right knee: Medial joint line tenderness, mild effusion. ROM 1-125. Stable to valgus and varus stress. Positive Dl's. Skin: no rashes, warm and dry Neurologic: patellar DTR's 2+ bilat, sensation intact Psychiatric: A+Ox3, euthymic affec Principal Diagnosis Right knee osteoarthritis Discharge Exam Constitutional well developed and well nourished; no acute distress Eyes PERRL, conjunctivae normal, anicteric sclerae ENMT external ear and nose normal, oropharynx normal Neck trachea midline, no thyromegaly Respiratory normal respiratory effort, lungs clear to auscultation Cardiovascular RRR, no murmur, no edema Skin no rashes, warm and dry Neurologic patellar DTR's 2+ bilat, sensation intact Psychiatric A+Ox3, euthymic affect Discharge Data Allergies Allergy/AdvReac Type Severity Reaction Status Date / Time No Known Drug Allergies Allergy Verified 10/21/19 11:39 Consultations 10/21/19 16:32 Consult Case Management - Discharge Planning Routine Procedures Performed Operation Date: 10/21/19 14:05 Actual Procedures p Right Total Knee Arthroplasty(Right) - Rashaad Menendez MD Ordered Studies 10/21/19 05:00 US - OR guided needle placemen Routine Hospital Course (1) Primary osteoarthritis of right knee: Patient presented for same day admission following right total knee arthroplasty on 10/21/19. She tolerated procedure well. The Patient had an uneventful hospital course. Post-operatively, her activity was progressed and well tolerated. They participated in PT with ambulation distance of 300 feet. ROM of operative knee reached 95 degrees. Labs remained stable- lowest hemoglobin recorded: 12.6. Pain controlled on oral medications. Please refer to daily progress notes and PT notes for complete details. After exam on 10/22/19, patient was felt to be stable for discharge home with home health PT. Patient will f/u in the office in about 2 weeks for further evaluation including x-rays and incision check, sooner if having any issues or concerns. POD#1 Right TKA -Pain management -PT/OT -DVT prophylaxis-SCDs, TEDs, ASA 81mg BID x 30 days -AM labs hemoglobin at 12.6 from 14.2 preop. WC at 18 likely due to intraoperative and preoperative steroids. -D/C planning-home with HHPT likely later today as long as labs stable and PT goes well. Lab Results 10/04/19 10/04/19 10/04/19 Range/Units 09:15 09:15 09:15 WBC 5.45 (4.8-10.8) K/uL RBC 4.63 (4.2-5.4) M/uL Hgb 14.2 (12.0-16.0) g/dL Hct 42.6 (37-47) % MCV 92.0 (80-100) fL MCH 30.7 (25-34) pg MCHC 33.3 (32-36) g/dL RDW Std Deviation 44.4 (36.4-46.3) fL RDW Coeff of Wilian 13.1 (11.5-14.5) % Plt Count 311 (130-400) K/uL MPV 9.9 (7.4-10.4) fL Immature Gran % (Auto) 0.4 % Neut % (Auto) 64.5 % Lymph % (Auto) 25.3 % Jack % (Auto) 7.0 % Eos % (Auto) 2.2 % Baso % (Auto) 0.6 % Immature Gran # (Auto) 0.02 (0.00-0.02) K/uL Neut # (Auto) 3.52 (1.4-6.5) K/uL Lymph # (Auto) 1.38 (1.2-3.4) K/uL Jack # (Auto) 0.38 (0.11-0.59) K/uL Eos # (Auto) 0.12 (0-0.5) K/uL Baso # (Auto) 0.03 (0-0.2) K/uL PT 10.9 (9.0-12.0) Seconds INR 1.0 (0.9-1.1) APTT 29.6 (21.0-31.0) Seconds PTT Ratio 1.1 Sodium 140 (136-145) mmol/L Potassium 3.8 (3.5-5.1) mmol/L Chloride 110 H (98-107) mmol/L Carbon Dioxide 26 (21-32) mmol/L Anion Gap 4.0 (3-11) BUN 15 (7-18) mg/dl Creatinine 0.78 (0.6-1.2) mg/dl Est Cr Clr Drug Dosing 76.3 ml/min Est GFR ( Amer) 97.8 Est GFR (Non-Af Amer) 84.4 BUN/Creatinine Ratio 19.3 (10-20) Glucose 97 (70-99) mg/dl Estimat Average Glucose mg/dl Hemoglobin A1c (4.5-5.6) % Calcium 8.6 (8.5-10.1) mg/dl Albumin 3.6 (3.4-5.0) gm/dl Urine Color Urine Appearance (Clear) Urine pH (4.5-7.5) Ur Specific [place] (1.000-1.030) Urine Protein (Negative) Urine Glucose (UA) (Negative) Urine Ketones (Negative) Urine Blood (Negative) Urine Nitrite (Negative) Urine Bilirubin (Negative) Urine Urobilinogen (Negative) Ur Leukocyte Esterase (Negative) Blood Type Antibody Screen 10/04/19 10/04/19 10/04/19 Range/Units 09:15 09:15 09:15 WBC (4.8-10.8) K/uL RBC (4.2-5.4) M/uL Hgb (12.0-16.0) g/dL Hct (37-47) % MCV (80-100) fL MCH (25-34) pg MCHC (32-36) g/dL RDW Std Deviation (36.4-46.3) fL RDW Coeff of Wilian (11.5-14.5) % Plt Count (130-400) K/uL MPV (7.4-10.4) fL Immature Gran % (Auto) % Neut % (Auto) % Lymph % (Auto) % Jack % (Auto) % Eos % (Auto) % Baso % (Auto) % Immature Gran # (Auto) (0.00-0.02) K/uL Neut # (Auto) (1.4-6.5) K/uL Lymph # (Auto) (1.2-3.4) K/uL Jack # (Auto) (0.11-0.59) K/uL Eos # (Auto) (0-0.5) K/uL Baso # (Auto) (0-0.2) K/uL PT (9.0-12.0) Seconds INR (0.9-1.1) APTT (21.0-31.0) Seconds PTT Ratio Sodium (136-145) mmol/L Potassium (3.5-5.1) mmol/L Chloride (98-107) mmol/L Carbon Dioxide (21-32) mmol/L Anion Gap (3-11) BUN (7-18) mg/dl Creatinine (0.6-1.2) mg/dl Est Cr Clr Drug Dosing ml/min Est GFR ( Amer) Est GFR (Non-Af Amer) BUN/Creatinine Ratio (10-20) Glucose (70-99) mg/dl Estimat Average Glucose 117 mg/dl Hemoglobin A1c 5.7 H (4.5-5.6) % Calcium (8.5-10.1) mg/dl Albumin (3.4-5.0) gm/dl Urine Color Yellow Urine Appearance Clear (Clear) Urine pH 5.5 (4.5-7.5) Ur Specific [place] 1.028 (1.000-1.030) Urine Protein Negative (Negative) Urine Glucose (UA) Negative (Negative) Urine Ketones Negative (Negative) Urine Blood Negative (Negative) Urine Nitrite Negative (Negative) Urine Bilirubin Negative (Negative) Urine Urobilinogen Negative (Negative) Ur Leukocyte Esterase Negative (Negative) Blood Type O Positive Antibody Screen NEGATIVE 10/22/19 10/22/19 Range/Units 05:20 05:20 WBC 18.51 H (4.8-10.8) K/uL RBC 4.25 (4.2-5.4) M/uL Hgb 13.0 (12.0-16.0) g/dL Hct 38.7 (37-47) % MCV 91.1 (80-100) fL MCH 30.6 (25-34) pg MCHC 33.6 (32-36) g/dL RDW Std Deviation 42.8 (36.4-46.3) fL RDW Coeff of Wilian 12.8 (11.5-14.5) % Plt Count 326 (130-400) K/uL MPV 9.9 (7.4-10.4) fL Immature Gran % (Auto) % Neut % (Auto) % Lymph % (Auto) % Jack % (Auto) % Eos % (Auto) % Baso % (Auto) % Immature Gran # (Auto) (0.00-0.02) K/uL Neut # (Auto) (1.4-6.5) K/uL Lymph # (Auto) (1.2-3.4) K/uL Jack # (Auto) (0.11-0.59) K/uL Eos # (Auto) (0-0.5) K/uL Baso # (Auto) (0-0.2) K/uL PT (9.0-12.0) Seconds INR (0.9-1.1) APTT (21.0-31.0) Seconds PTT Ratio Sodium 141 (136-145) mmol/L Potassium 3.7 (3.5-5.1) mmol/L Chloride 111 H (98-107) mmol/L Carbon Dioxide 24 (21-32) mmol/L Anion Gap 6.0 (3-11) BUN 14 (7-18) mg/dl Creatinine 0.75 (0.6-1.2) mg/dl Est Cr Clr Drug Dosing 77.9 ml/min Est GFR ( Amer) 102.6 Est GFR (Non-Af Amer) 88.5 BUN/Creatinine Ratio 19.0 (10-20) Glucose 131 H (70-99) mg/dl Estimat Average Glucose mg/dl Hemoglobin A1c (4.5-5.6) % Calcium 9.1 (8.5-10.1) mg/dl Albumin (3.4-5.0) gm/dl Urine Color Urine Appearance (Clear) Urine pH (4.5-7.5) Ur Specific [place] (1.000-1.030) Urine Protein (Negative) Urine Glucose (UA) (Negative) Urine Ketones (Negative) Urine Blood (Negative) Urine Nitrite (Negative) Urine Bilirubin (Negative) Urine Urobilinogen (Negative) Ur Leukocyte Esterase (Negative) Blood Type Antibody Screen Total Time Total Time Spent Total Time Spent (In Minutes): 20 Discharge Plan Discharge Items Patient Disposition: Home - Home Health Services Reason For Visit: RIGHT KNEE OSTEOARTHRITIS Discharge Diagnosis: Right knee osteoarthritis Activity: Per Instructions section Non-emergency contact: Surgeon Call non-emergency contact if: you have any medication questions, your symptoms worsen, your pain is not controlled, your pain is unusual for you, your pain is concerning for you, you have a fever, your temperature is above 101, your wound has increased redness, your wound has increased drainage and your wound pain has increased Follow-up/Referrals: Percy Mario III, CRNP [Primary Care Provider] - Diet: Regular Addtl Attending Provider Instructions: ACTIVITY RECOMMENDATIONS: SELF CARE INSTRUCTIONS AFTER TOTAL KNEE REPLACEMENT A. You may need to continue a physical therapy program after discharge from the hospital. There are several options available to you. Your doctor will assist you in selecting the best one for you. 1. An out-patient facility 2 to 3 times a week for therapy or home therapy. 2. Continue working on all exercises taught to you in the hospital. Your goals should be to increase bending of your knee to 90 degrees and beyond and to fully straighten your knee. B. You may progress at your own pace from walking with a walker or crutches to a cane; then to no assistive devices. C. Make walking a part of your daily routine. Be up as much as comfortable with rest periods throughout the day. Rest with leg elevation is very important. Use the ice wrap frequently for the first 3-4 weeks. D. There are no restrictions on activities. You may ride in a car, shop, participate in roll form operator and all social activities. E. Wear the long elastic stockings (ANDRES hose) 20 hours a day for 2 weeks after surgery. They can be removed several times a day for laundering and for a bath. F. You may shower, no tub baths until cleared by your doctor. SPECIAL CARE INSTRUCTIONS: VERY IMPORTANT TO READ AND REVIEW A. There are a few signs you need to watch for after you are home. Call [facility] if you notice any of the followin. Increased severe knee pain. Some pain is expected especially when you exercise. 2. Increased swelling in your leg or knee; pain or swelling of the calf muscle in either lower leg. 3. Any fluid drainage from the incision. 4. Shortness of breath or chest pain. B. Please call [facility] at if you have any concerns or questions about your operation or recovery. The doctor or his nurse will return your call promptly. C. You must take antibiotics before dental work, bladder, bowel or other surgery. Your doctor will provide you with a permanent care to carry describing this precaution. IMPORTANT: * REMEMBER TO TAKE ASPIRIN, 81 MG, TWICE DAILY FOR 4 WEEKS UNLESS OTHERWISE DIRECTED. THIS IS YOUR BLOOD THINNER. * HIGH RISK PATIENTS MAY BE PRESCRIBED A STRONGER BLOOD THINNER. THIS WILL BE PROVIDED AT DISCHARGE. * CALL IF INCREASED PAIN, REDNESS, DRAINAGE OR FEVER GREATER THAT 101. * WEAR ANDRES HOSE 20 HOURS PER DAY FOR 2 WEEKS. This is a large suction dressing covering your incision. This will help pull any excess drainage from the wound and allow your incision to heal properly. You may shower with this if you can keep the unit outside of the shower. If any bleeding or leakage is noted please call your doctor's office. This will remain on your incision for 7 days and then should be removed. This can be done yourself or by the home nursing staff if applicable. The entire unit is disposable once removed. Once removed, keep incision clean and dry. If redness or drainage is noted, please call your surgeon. FOLLOW UP VISIT: If appointment is not already scheduled: Please call [facility] to make a follow-up appointment for 2 weeks after your surgery at . Pending Studies at Discharge: No Stand-Alone Forms: My LMN-1, Opioid Pain Management, Smoking Cessation Medications and DC Order Prescriptions: New celecoxib [Celebrex] 200 mg Capsule 200 mg PO BID Qty: 60 RF: 0 aspirin 81 mg Tablet,Delayed Release (Dr/Ec) 81 mg PO BID Qty: 60 RF: 0 acetaminophen 500 mg Tablet 1,000 mg PO Q8 Qty: 60 RF: 0 oxycodone 5 mg Tablet 5 - 10 mg PO .Q4H-6H MDD 6 PRN (Reason: pain) Qty: 30 RF: 0 Continued cyanocobalamin (vitamin B-12) 1,000 mcg capsule 1,000 mcg PO QAM Qty: 30 RF: 0 cholecalciferol (vitamin D3) 2,000 unit tablet 4,000 units PO QAM RF: 0 duloxetine 60 mg capsule,delayed release(DR/EC) 60 mg PO QAM Qty: 90 RF: 1 Slow-Mag 71.5 mg Tablet,Delayed Release (Dr/Ec) 71.5 mg PO DAILY RF: 0 levothyroxine 75 mcg tablet 75 mcg PO Q OTHER DAY RF: 0 levothyroxine 50 mcg tablet 50 mcg PO Q OTHER DAY RF: 0 zaleplon 10 mg capsule 10 mg PO DAILY PRN (Reason: Sleep) RF: 0 Discontinued acetaminophen [Tylenol] 325 mg Capsule 650 mg PO DIRECTED PRN (Reason: Pain) RF: 0 Discharge Orders: Discharge Order (Routine); Ordered 10/22/19 Ordered By: Tyrone Lazaro/Other Patient Handouts: DVT Post Op Prevention Admission Data Admit Date/Time: 10/21/19 16:02 Attending Provider: Rashaad Menendez Admit Provider: Rashaad Menendez Primary Care Provider: Percy Mario III Other Providers: [facility],Home Healthcare Other Interventions: Discharge Summary Assessment (RN) Last Done: 10/22/19 10:28 [place] Date/Time DO NOT enter until pt leaves facility: 10/22/19 12:24
[2019-10-23] MEDS ORDERED: LEVOTHYROXINE SODIUM 50 MCG TABLET PO SCH (06:30)
== END 2019-10-22 12:24 | disposition home health service (06) | DRG 470 ==
LOC: ASU 11:14 → 3E 16:02
DX: Z82.49 Family history of ischemic heart disease and other diseases of the circulatory system; Z80.3 Family history of malignant neoplasm of breast; M17.11 Unilateral primary osteoarthritis, right knee; Z84.1 Family history of disorders of kidney and ureter; Z98.51 Tubal ligation status; B18.1 Chronic viral hepatitis B without delta-agent

== ENCOUNTER 2020-03-02 10:11 | Inpatient (IN) ==
[2020-02-09 15:50] LABS: Basophils # (auto) 0.02 K/uL (0-0.2); Basophils % (auto) 0.1 %; Eosinophils # (auto) 0.13 K/uL (0-0.5); Eosinophils % (auto) 0.9 %; Hematocrit (blood only) 45.9 % (37-47); Hemoglobin 15.2 g/dL (12.0-16.0); Immature Granulocytes # (auto) 0.08 K/uL (0.00-0.02); Immature Granulocytes % (auto) 0.5 %; Lymphocytes # (auto) 2.25 K/uL (1.2-3.4); Lymphocytes % (auto) 15.4 %; Mean Corpuscular Hemoglobin 30.7 pg (25-34); Mean Corpuscular Hgb Conc 33.1 g/dL (32-36); Mean Corpuscular Volume 92.7 fL (80-100); Mean Platelet Volume 10.1 fL (7.4-10.4); Monocytes # (auto) 0.89 K/uL (0.11-0.59); Monocytes % (auto) 6.1 %; Neutrophils # (auto) 11.23 K/uL (1.4-6.5); Platelet Count 362 K/uL (130-400); RDW Coefficient of Variation 13.7 % (11.5-14.5); RDW Standard Deviation 46.3 fL (36.4-46.3); Red Blood Count 4.95 M/uL (4.2-5.4)
[2020-02-09 16:03] LABS: Partial Thromboplastin Ratio 0.9; Partial Thromboplastin Time 25.7 Seconds (21.0-31.0); Prothrombin Time 10.5 Seconds (9.0-12.0)
[2020-02-09 16:13] LABS: Albumin Level 3.6 gm/dl (3.4-5.0); Appearance Urine Clear (Clear); BUN Creatinine Ratio 26.4 (10-20); Bilirubin Urine Negative (Negative); Blood Urea Nitrogen 22 mg/dl (7-18); Blood Urine Negative (Negative); Calcium 9.1 mg/dl (8.5-10.1); Carbon Dioxide 28 mmol/L (21-32); Chloride 107 mmol/L (98-107); Color Urine Yellow; Est GFR (African American) 89.4; Est GFR (Non-African American) 77.2; Glucose 98 mg/dl (70-99); Glucose Urine UA Negative (Negative); Ketones Urine Negative (Negative); Leukocyte Esterase Urine Negative (Negative); Nitrite Urine Negative (Negative); Potassium 3.3 mmol/L (3.5-5.1); Protein Urine Negative (Negative); Sodium 141 mmol/L (136-145); Specific Gravity Urine 1.028 (1.000-1.030); Urobilinogen Urine Negative (Negative)
[2020-02-10 07:37] LABS: Estimated Average Glucose 126 mg/dl
--- NOTE | 2020-02-13 08:29 | History & Physical Report ---
Date of Service February 13, 2020 Assessment & Plan (1) Primary osteoarthritis of left knee: Treatment options discussed. Patient has failed conservative measures as above. Risks, benefits and alternatives to surgery including but not limited to infection, DVT, pain, stiffness, need for revision surgery, damage to blood vessels, damage to nerves, PE, , were discussed with the patient and they wish to proceed. Plan will be for left total knee arthroplasty at [facility] on 03/02/20. COVID testing will be completed preoperatively. Plan for aspirin 81mg BID x 1 mo post operatively as DVT prophylaxis. Will plan on OPPT upon discharge from the hospital. All questions answered. She will follow up post operatively. History of Present Illness Chief Complaint: Left knee pain Primary Care Provider: Percy Mario, III, FULL TIME BABYSITTER 59 year old female with PMHx significant for hypothyroidism, back pain, and diagnosed as carrier of Hep B who presents with ongoing left knee pain. She has failed conservative measures including injections, rehab, and anti- inflammatories. Pain is affecting her ability to carry out her daily activities. She would like to proceed with left knee replacement. Previously had right knee replacement and has done well with. Patient denies headaches, sweats, fevers, chills, double vision, blurred vision, cough, sore throat, dysphagia, chest pain, sob, wheezing, n/v/d/c, numbness, tingling, fatigue, urinary symptoms, mood disorders. ROS positive for left knee pain and stiffness. Allergies Allergy/AdvReac Type Severity Reaction Status Date / Time No Known Drug Allergies Allergy Unknown Verified 02/10/20 13:04 Home Medications Home Medications Medication Instructions Recorded Confirmed Type cholecalciferol (vitamin D3) 50 4,000 units PO QAM tab 11/27/18 02/10/20 History mcg (2,000 unit) tablet cyanocobalamin (vitamin B-12) 1,000 mcg PO QAM #30 cap 11/27/18 02/10/20 History 1,000 mcg capsule duloxetine 60 mg capsule,delayed 60 mg PO QAM #90 cap 09/29/19 02/10/20 Rx release Slow-Mag 71.5 mg PO DAILY 10/01/19 02/10/20 History levothyroxine 50 mcg PO Q OTHER DAY 10/01/19 02/10/20 History levothyroxine 75 mcg PO Q OTHER DAY 10/01/19 02/10/20 History acetaminophen 1,000 mg PO UD PRN 12/01/19 02/10/20 History zaleplon 10 mg capsule 10 mg PO HS PRN #30 cap 01/07/20 02/10/20 Rx Past Med/Surg History Medical History Chronic back pain Hepatitis B DX 20 YRS AGO CARRIER FOR HEPATITIS B- DENIES KNOWN HEP B INFECTION History of depression Hypothyroidism Primary osteoarthritis of right knee TMJ click NO JAW LOCKING Surgical History H/O section H/O hernia repair H/O tubal ligation History of arthroscopy BILAT KNEES History of delivery History of colonoscopy History of ear surgery LEFT TUBE REMOVAL & LEFT TUBE REPLACEMENT - DR. KIRK 12/03/2019 History of hernia repair Hx of biopsy THYROID Hx of biopsy LIVER Hx of decompression of ulnar nerve RIGHT S/P total knee arthroplasty 10/21/19 Dr. Rashaad Menendez- Right Status post myringotomy with insertion of tube 02/05/2019 [facility] [place] Family History Unknown FHx: allergies Cardiac disorder Hypothyroidism Myocardial infarction Sinusitis Hypertension Stroke Father , Mid 50's FHx: kidney cancer Kidney stones Myocardial infarction Hypertension Stroke Grandmother No problems noted. 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 [employer] Feels Safe at Home: Yes Childhood Exposure to Second-Hand Smoke: No Dental Care, Regularly: Yes Physical Activity Frequency: 5-6 Times per Week Seatbelt Use: always Sunscreen Use: Yes Assistive Devices: Glasses Review of Systems All systems reviewed & are unremarkable except as noted in HPI & below Physical Exam Constitutional: well developed and well nourished; no acute distress Eyes: PERRL, conjunctivae normal, anicteric sclerae ENMT: external ear and nose normal, oropharynx normal Neck: trachea midline, no thyromegaly Respiratory: normal respiratory effort, lungs clear to auscultation Cardiovascular: RRR, no murmur, no edema Musculoskeletal: Left knee: Medial joint line tenderness, mild effusion. ROM 1-125. Stable to valgus and varus stress. Positive Dl's. Skin: no rashes, warm and dry Neurologic: patellar DTR's 2+ bilat, sensation intact Psychiatric: A+Ox3, euthymic affect Results & Data ([facility]) Laboratory Results Lab Results 02/09/20 02/09/20 02/09/20 Range/Units 14:02 14:02 14:02 WBC 14.60 H (4.8-10.8) K/uL RBC 4.95 (4.2-5.4) M/uL Hgb 15.2 (12.0-16.0) g/dL Hct 45.9 (37-47) % MCV 92.7 (80-100) fL MCH 30.7 (25-34) pg MCHC 33.1 (32-36) g/dL RDW Std Deviation 46.3 (36.4-46.3) fL RDW Coeff of Wilian 13.7 (11.5-14.5) % Plt Count 362 (130-400) K/uL MPV 10.1 (7.4-10.4) fL Immature Gran % (Auto) 0.5 % Neut % (Auto) 77.0 % Lymph % (Auto) 15.4 % Tyler % (Auto) 6.1 % Eos % (Auto) 0.9 % Baso % (Auto) 0.1 % Neut # (Auto) 11.23 H (1.4-6.5) K/uL Lymph # (Auto) 2.25 (1.2-3.4) K/uL Tyler # (Auto) 0.89 H (0.11-0.59) K/uL Eos # (Auto) 0.13 (0-0.5) K/uL Baso # (Auto) 0.02 (0-0.2) K/uL Immature Gran # (Auto) 0.08 H (0.00-0.02) K/uL PT 10.5 (9.0-12.0) Seconds INR 1.0 (0.9-1.1) APTT 25.7 (21.0-31.0) Seconds PTT Ratio 0.9 Sodium 141 (136-145) mmol/L Potassium 3.3 L (3.5-5.1) mmol/L Chloride 107 (98-107) mmol/L Carbon Dioxide 28 (21-32) mmol/L Anion Gap 6.0 (3-11) BUN 22 H (7-18) mg/dl Creatinine 0.84 (0.6-1.2) mg/dl Est GFR ( Amer) 89.4 Est GFR (Non-Af Amer) 77.2 BUN/Creatinine Ratio 26.4 H (10-20) Glucose 98 (70-99) mg/dl Estimat Average Glucose mg/dl Hemoglobin A1c (4.5-5.6) % Calcium 9.1 (8.5-10.1) mg/dl Albumin 3.6 (3.4-5.0) gm/dl Urine Color Urine Appearance (Clear) Urine pH (4.5-7.5) Ur Specific [place] (1.000-1.030) Urine Protein (Negative) Urine Glucose (UA) (Negative) Urine Ketones (Negative) Urine Blood (Negative) Urine Nitrite (Negative) Urine Bilirubin (Negative) Urine Urobilinogen (Negative) Ur Leukocyte Esterase (Negative) Blood Type Antibody Screen 02/09/20 02/09/20 02/09/20 Range/Units 14:02 14:02 14:02 WBC (4.8-10.8) K/uL RBC (4.2-5.4) M/uL Hgb (12.0-16.0) g/dL Hct (37-47) % MCV (80-100) fL MCH (25-34) pg MCHC (32-36) g/dL RDW Std Deviation (36.4-46.3) fL RDW Coeff of Wilian (11.5-14.5) % Plt Count (130-400) K/uL MPV (7.4-10.4) fL Immature Gran % (Auto) % Neut % (Auto) % Lymph % (Auto) % Tyler % (Auto) % Eos % (Auto) % Baso % (Auto) % Neut # (Auto) (1.4-6.5) K/uL Lymph # (Auto) (1.2-3.4) K/uL Tyler # (Auto) (0.11-0.59) K/uL Eos # (Auto) (0-0.5) K/uL Baso # (Auto) (0-0.2) K/uL Immature Gran # (Auto) (0.00-0.02) K/uL PT (9.0-12.0) Seconds INR (0.9-1.1) APTT (21.0-31.0) Seconds PTT Ratio Sodium (136-145) mmol/L Potassium (3.5-5.1) mmol/L Chloride (98-107) mmol/L Carbon Dioxide (21-32) mmol/L Anion Gap (3-11) BUN (7-18) mg/dl Creatinine (0.6-1.2) mg/dl Est GFR ( Amer) Est GFR (Non-Af Amer) BUN/Creatinine Ratio (10-20) Glucose (70-99) mg/dl Estimat Average Glucose 126 mg/dl Hemoglobin A1c 6.0 H (4.5-5.6) % Calcium (8.5-10.1) mg/dl Albumin (3.4-5.0) gm/dl Urine Color Yellow Urine Appearance Clear (Clear) Urine pH 5.0 (4.5-7.5) Ur Specific [place] 1.028 (1.000-1.030) Urine Protein Negative (Negative) Urine Glucose (UA) Negative (Negative) Urine Ketones Negative (Negative) Urine Blood Negative (Negative) Urine Nitrite Negative (Negative) Urine Bilirubin Negative (Negative) Urine Urobilinogen Negative (Negative) Ur Leukocyte Esterase Negative (Negative) Blood Type O Positive Antibody Screen NEGATIVE Diagnostic Findings Left knee: Significant joint space narrowing medial compartment, near bone on bone. Osteophyte formation medial tibial plateau and subchondral sclerosis.
--- NOTE | 2020-02-14 11:32 | Anesthesiology Consultation ---
Date of Service February 14, 2020 Assessment & Plan (1) Encounter for pre-operative examination: - Per assessment on 02/13: Travel screen negative. No known COVID-19 positive contacts or current COVID-19 related symptoms. Surgeon arranging preop COVID t esting (scheduled 02/24; [facility]). Awaiting results. - S/P Left ear tube removal, Left myringotomy tube insertion: 12/03/19: LMA#4 at [facility] [place] - S/P Right TKA: 10/21/19: SAB (Level L4-L5) + PNB at [facility] Chart Review Chart Review: Acceptable Risk for Surgery and Patient NOT seen in Pre Admission Testing History Surgery Operation Date: 03/02/20 09:50 Proposed Procedures p Left Total Knee Arthroplasty - Rashaad Menendez MD Height/Weight Height: 5 ft 1.5 in Weight: 77.111 kg Allergies Allergy/AdvReac Type Severity Reaction Status Date / Time No Known Drug Allergies Allergy Unknown Verified 02/14/20 10:57 Medications Home Medications Medication Instructions Recorded Confirmed Last Taken cholecalciferol (vitamin D3) 50 4,000 units PO QAM tab 11/27/18 02/14/20 12/02/19 mcg (2,000 unit) tablet cyanocobalamin (vitamin B-12) 1,000 mcg PO QAM #30 cap 11/27/18 02/14/20 12/02/19 1,000 mcg capsule duloxetine 60 mg capsule,delayed 60 mg PO QAM #90 cap 09/29/19 02/14/20 12/02/19 release Slow-Mag 71.5 mg PO DAILY 10/01/19 02/14/20 12/02/19 levothyroxine 50 mcg PO Q OTHER DAY 10/01/19 02/14/20 12/02/19 levothyroxine 75 mcg PO Q OTHER DAY 10/01/19 02/14/20 12/03/19 06:30 acetaminophen 1,000 mg PO UD PRN 12/01/19 02/14/20 12/02/19 zaleplon 10 mg capsule 10 mg PO HS PRN #30 cap 01/07/20 02/14/20 Unknown naproxen sodium [Aleve] 220 mg PO BID PRN 02/14/20 02/14/20 Unknown Past Medical History Medical History Chronic back pain History of depression Hypothyroidism Obesity Primary osteoarthritis of right knee TMJ click no locking Past Family History Family History Unknown FHx: allergies Cardiac disorder Hypothyroidism Myocardial infarction Sinusitis Hypertension Stroke Father , Mid 50's FHx: kidney cancer Kidney stones Myocardial infarction Hypertension Stroke Grandmother No problems noted. Grandmother (Maternal) Breast cancer Aunt Family history of diabetes mellitus Denies family history of Ovarian cancer Prostate cancer Colorectal cancer Past Surgical History Surgical History H/O section H/O hernia repair H/O tubal ligation History of arthroscopy BILAT KNEES History of colonoscopy History of ear surgery Left ear tube removal, Left myringotomy tube insertion: 12/03/19: LMA#4 at [facility] [place] Hx of biopsy THYROID Hx of biopsy LIVER Hx of decompression of ulnar nerve RIGHT S/P total knee arthroplasty 10/21/19 Dr. Rashaad Menendez- Right Status post myringotomy with insertion of tube 02/05/2019 [facility] [place] Social History Smoking Status: Never smoker Do You Dip or Chew Tobacco: No Hx Alcohol Use: No alcohol intake frequency: holidays/special occasions only Hx Substance Use: No substance use type: does not use Testing Laboratory Results 02/09/20 14:02 02/09/20 14:02 PT 10.5 Seconds (9.0-12.0) 02/09/20 14:02 INR 1.0 (0.9-1.1) 02/09/20 14:02 APTT 25.7 Seconds (21.0-31.0) 02/09/20 14:02 Hemoglobin A1c 6.0 % (4.5-5.6) H 02/09/20 14:02 Urine Color Yellow 02/09/20 14:02 Urine Appearance Clear (Clear) 02/09/20 14:02 Urine pH 5.0 (4.5-7.5) 02/09/20 14:02 Ur Specific [place] 1.028 (1.000-1.030) 02/09/20 14:02 Urine Protein Negative (Negative) 02/09/20 14:02 Urine Glucose (UA) Negative (Negative) 02/09/20 14:02 Urine Ketones Negative (Negative) 02/09/20 14:02 Urine Nitrite Negative (Negative) 02/09/20 14:02 Ur Leukocyte Esterase Negative (Negative) 02/09/20 14:02 Blood Type O Positive 02/09/20 14:02 Antibody Screen NEGATIVE 02/09/20 14:02 02/09/20 T&S O+Ab- Elevated WBC on preop labs (labs ordered as preop by surgeon) Electrocardiogram Date: 09/29/19 + NSR @ (86) Chest X-Ray Date: 02/09/20 Findings: + NAD Stress Test Date: 11/29/14 Type: exercise (Stress ECHO) Resting EF: 60% Resting LV Function: normal Resting RWMA: + none Valvular Disease: no significant valvular disease 10.8 METS achieved. MPHR= 100%. Normal stress ECHO. No EKG changes. No exercise induced chest pain. Normal baseline ECHO.
[~2020-03-02 10:11] MED LIST changes: +BUPIVACAINE 0.25% 30 ML VIAL ONE; -CEFAZOLIN 2000MG 2,000 MG/15 ML SYR IV SCH; +DEXAMETHASONE SOD INJ 4 MG/ML VIAL ONE; +EPINEPHrine INJ 1 MG/ML AMP ONE; +MIDAZOLAM HCL 1 MG/ML 2ML VIAL ONE; +ROPIVACAINE 0.5% HCL/PF 150 MG, BUPIVACAINE 0.5% MPF 30 ML, EPINEPHrine 30MG/30ML (OR U... INSTIL SCH; +ceFAZolin 2000MG 2,000 MG/15 ML SYR IV SCH; -dexAMETHasone 4 MG TAB PO SCH; +fentaNYL citrate 100 MCG/2 ML VIAL ONE
--- NOTE | 2020-03-02 11:34 | History & Physical Bridge Note ---
Date of Service March 02, 2020 History & Physical Bridge Note I have examined the patient, reviewed the History & Physical and in the interval since the performance of the History & Physical I have noted the following changes of clinical significance: no changes noted
[2020-03-02] MEDS ORDERED: ORTHO JOINT ANESTHETIC ONE (12:19)
[2020-03-02] MEDS ORDERED: BACITRACIN INJ 50,000 UNIT VIAL ONE (12:19)
[2020-03-02] MEDS ORDERED: LIDOCAINE HCL 2% 2 ML VIAL/AMP(20MG/ML) INFIL ONE (13:26)
[2020-03-02] MEDS ORDERED: ONDANSETRON INJ 2 MG/ML 2 ML VIAL ONE (13:26)
[2020-03-02] MEDS ORDERED: PROPOFOL IV EMULSION 10 MG/ML 20 ML VIAL IV ONE (13:26)
[2020-03-02] MEDS ORDERED: fentaNYL citrate 100 MCG/2 ML VIAL IV PRN (13:46)
[2020-03-02] MEDS ORDERED: ePHEDrine sulfate 50 MG/ML AMP IV PRN (13:46)
[2020-03-02] MEDS ORDERED: ATROPINE SULFATE 0.1 MG/ML 10ML SYR IV PRN (13:46)
[2020-03-02] MEDS ORDERED: ONDANSETRON INJ 2 MG/ML 2 ML VIAL IV PRN ×2 (13:46→16:50)
--- NOTE | 2020-03-02 14:51 | Operative Report ---
Post Operative Report Pre & Post Diagnosis Operation Date: 03/02/20 12:15 Pre-Op Diagnosis: Osteoarthritis, Left Knee Post-Op Diagnosis: Osteoarthritis, Left Knee I identified the patient and participated in the time-out.: Yes Procedure Operation Date: 03/02/20 12:15 Actual Procedures p Left Total Knee Arthroplasty(Left) - Rashaad Menendez MD Surgeon Rashaad Menendez MD Wire Inserter Tyrone Schumacher PA-C Estimated Blood Loss 20 Findings Consistent with Post-Op Diagnosis Specimens Bone and tissue Drains None Anesthesia Type MAC Spinal Regional Complications none Disposition Accompanied Patient To Recovery: No Disposition: Recovery Room Indications The patient is a 59-year-old female with longstanding arthritis in the left knee. She is [id number] in the medial compartment. She has failed conservative measures including injection, anti-inflammatory medications, physical therapy. She wishes to proceed with left total knee arthroplasty. Description of Procedure Risks benefits and alternatives of surgery including but not limited to infection, DVT, pain, stiffness, need for surgery, damage to blood vessels, damage to nerves or risks of anesthesia were discussed with the patient and they wished to proceed. The patient was identified and the laterality was confirmed and marked. They received a preoperative antibiotic as well as a spinal anesthetic and an abductor canal block. A well-padded tourniquet was applied and then the limb was prepped and draped in standard manner with ChloraPrep. The limb was exsanguinated and the tourniquet was inflated. I made a standard anterior incision. I sharply incised the skin then utilized Bovie electrocautery to achieve hemostasis. I made a medial parapatellar arthrotomy and mobilized the patella laterally. I then excised the anterior horns of the medial and lateral meniscus as well as the infrapatellar fat pad. I elevated a portion of the MCL off of the tibia. I then pinned into place a patient-matched distal femoral cutting guide and made my distal femoral resection. I then pinned into place the 5 in 1 femoral cutting guide. I made my anterior, posterior and chamfer cuts. I then excised the cruciates and the remaining portions of the menisci. I then pinned into place a patient- matched tibial cutting guide and made my tibial resection. I then pinned into place the tibial plate a utilizing alignment loretta to confirm rotation. I then cut for the post. Utilizing a lamina gas line repairer and I then removed posterior osteophytes off the femur. I then placed a trial femur into position and cut for the trochlear component. I then sequentially trialed to size the polyethylene until there was good soft tissue balancing and range of motion. I then prepared the patella with a freehand cut utilizing sagittal saw. I sized and drilled for the patella. There was good tracking to the patella no lateral release was needed. All the trial components were removed. The deep tissues were anesthetized with an ortho mix solution. Then with Simplex HV with gentamicin cement, I cemented my definitive components. Definitive components, Rizvi and Nephew Tim 2: Femur 3 Tibia 2 Poly 9 Patella 29 round A betadine soak was performed. The arthrotomy was closed with interrupted #1 Vicryl suture subcutaneous tissue was closed with interrupted 2-0 Vicryl suture. The skin was closed with with joao. An Acticoat and Jose L dressing were placed. Sterile dressings were applied. All needle and sponge counts were correct at the end of the procedure patient was transferred to the PACU in stable condition without apparent complication. The PA-C was necessary for assistance with procedure for assistance in pos itioning, prepping, draping, retraction and closure. I attest to the content of the Intraoperative Record and any orders documented therein. Any exceptions are noted below.
--- NOTE | 2020-03-02 16:09 | XRay Report ---
LEFT KNEE 2 VIEWS History: Left total knee arthroplasty. Degenerative arthritis. Postop. FINDINGS: The patient is status post a left total knee arthroplasty. The hardware is intact. No fract ure or dislocation. Skin joao are in place. IMPRESSION: Left total knee arthroplasty. No evidence for hardware complication. ACT 112: Negative or not required by law. Electronically signed by: David Rao M.D. 03/02/2020 4:07 PM
[2020-03-02] MEDS ORDERED: ZALEPLON 5 MG CAPSULE PO PRN (16:50)
[2020-03-02] MEDS ORDERED: NALOXONE HCL 0.4 MG/1 ML VIAL/CARP IV PRN (16:50)
[2020-03-02] MEDS ORDERED: MAGNESIUM HYDROXIDE SUSP 30 ML UDC PO PRN (16:50)
[2020-03-02] MEDS ORDERED: bisacodyL 10 MG SUPP PR PRN (16:50)
[2020-03-02] MEDS ORDERED: METOCLOPRAMIDE HCL INJ 5 MG/ML 2 ML VIAL IV PRN (16:50)
[2020-03-02] MEDS ORDERED: SODIUM CHLORIDE 0.9% 1000ML 1,000 ML IV SCH (16:50)
[2020-03-02] MEDS: ACETAMINOPHEN 500 MG TAB PO SCH ×2 (17:54→23:20)
--- NOTE | 2020-03-02 18:12 | Anesthesiology Progress Note ---
Date of Service March 02, 2020 Anesthesia Post Procedure Vital Signs Vital Signs: Temp Pulse Pulse Resp BP BP Pulse Ox 03/02/20 17:49 36.5 C 99 H 18 112/80 97 03/02/20 17:14 37.0 C 96 H 18 124/85 99 03/02/20 16:20 78 16 113/75 95 03/02/20 16:10 36.5 C 78 16 120/79 95 03/02/20 16:00 36.5 C 87 16 111/70 97 03/02/20 15:50 88 16 124/90 97 03/02/20 15:40 110 H 16 128/77 100 03/02/20 15:34 36.1 C L 108 H 16 126/76 97 03/02/20 11:25 100 H 18 142/85 H 96 03/02/20 10:59 37.2 C 103 H 18 156/66 H 94 Transfer of Care Handoff Completed per policy Notes Mental Status: alert / awake / arousable Patient Amnestic to Procedure: Yes Nausea / Vomiting: adequately controlled Pain: adequately controlled Airway Patency, RR, SpO2: stable & adequate BP & HR: stable & adequate Hydration State: stable & adequate Neuraxial Anesthesia: was administered and sensory block is resolving Anesthetic Complications: no major complications apparent
[2020-03-02] MEDS: DOCUSATE SODIUM 100 MG CAP PO SCH (21:05)
[2020-03-02] MEDS: ASPIRIN 81 MG ECTAB PO SCH (21:05)
[2020-03-02] MEDS: SENNA 8.6 MG TAB PO SCH (21:05)
[2020-03-02] MEDS: CeleBREX 200 MG CAP PO SCH (21:06)
[2020-03-02] MEDS: ceFAZolin 2000MG 2,000 MG/15 ML SYR IV SCH (21:08)
[2020-03-03] MEDS: oxyCODONE HCL IR 5 MG TAB (IMMEDIATE RELEASE) PO PRN ×5 (01:58→21:42)
[2020-03-03] MEDS: HYDROmorphone INJ 0.5 MG/0.5 ML SYR IV PRN ×2 (03:15→23:44)
[2020-03-03] MEDS: ACETAMINOPHEN 500 MG TAB PO SCH ×3 (05:58→21:23)
[2020-03-03] MEDS: ceFAZolin 2000MG 2,000 MG/15 ML SYR IV SCH (06:00)
[2020-03-03] MEDS: LEVOTHYROXINE SODIUM 50 MCG TABLET PO SCH (06:00)
[2020-03-03 06:35] LABS: Hematocrit (blood only) 38.6 % (37-47); Hemoglobin 12.9 g/dL (12.0-16.0); Mean Corpuscular Hemoglobin 30.9 pg (25-34); Mean Corpuscular Hgb Conc 33.4 g/dL (32-36); Mean Corpuscular Volume 92.6 fL (80-100); Mean Platelet Volume 9.6 fL (7.4-10.4); Platelet Count 377 K/uL (130-400); RDW Coefficient of Variation 13.2 % (11.5-14.5); RDW Standard Deviation 44.9 fL (36.4-46.3); Red Blood Count 4.17 M/uL (4.2-5.4); White Blood Count 17.57 K/uL (4.8-10.8)
[2020-03-03 07:08] LABS: BUN Creatinine Ratio 14.1 (10-20); Calcium 8.4 mg/dl (8.5-10.1); Creatinine Clr Calc Pharmacy 62.3 ml/min; Est GFR (African American) 76.1; Est GFR (Non-African American) 65.7; Potassium 3.9 mmol/L (3.5-5.1)
--- NOTE | 2020-03-03 07:31 | Orthopedic Progress Note ---
Date of Service March 03, 2020 Assessment & Plan (1) Primary osteoarthritis of left knee: POD#1 Left TKA -PT/OT -DVT prophylaxis-[id number] BID, SCDs, TEDs -Pain management -AM labs-leukocytosis likely secondary to pre and intraop steroids, surgical stress. Hemoglobin at 12.9 from 14.7 preo op. -D/C planning-home with outpatient PT. Will see how she does with PT today, however likely will plan on discharge tomorrow. Admission and Anticipated Discharge Date Admission Date: March 02, 2020 Subjective POD#1 left TKA. Patient is doing okay, pain controlled with ordered medication. Having some giving way episodes with her knee, otherwise doing okay. Denies any chest pain, sob, dizziness, n/v/d, fever or chills. Review of Systems Review of Systems: All systems reviewed & are unremarkable except as noted in HPI & below Physical Exam Physical Exam: Left knee dressing is c/d/i. Toes are mobile with good dorsiflexion. Does have some mild calf tenderness, negative Meseret's. Distally n/v status is c/d/i. Constitutional: well developed and well nourished; no acute distress Results & Data ([facility]) Vital Signs (Past 12 Hours) Vital Signs Temp Pulse Resp BP Pulse Ox 03/03/20 07:24 36.8 C 87 16 112/69 90 03/03/20 00:11 36.4 C L 80 14 117/77 93 03/02/20 19:43 36.4 C L 98 H 18 127/76 96
[2020-03-03] MEDS ORDERED: predniSONE 20 MG TAB PO SCH (09:00)
[2020-03-03] MEDS: MULTIVITAMIN TAB PO SCH (10:03)
[2020-03-03] MEDS: ASPIRIN 81 MG ECTAB PO SCH ×2 (10:03→20:16)
[2020-03-03] MEDS: DULoxetine HCL 60 MG CAP PO SCH (10:03)
[2020-03-03] MEDS: CYANOCOBALAMIN 500 MCG TABLET (VITAMIN B-12) PO SCH (10:03)
[2020-03-03] MEDS: CHOLECALCIFEROL 1,000 UNITS 25 MCG TAB PO SCH (10:04)
[2020-03-03] MEDS: CeleBREX 200 MG CAP PO SCH ×2 (10:05→20:15)
[2020-03-03] MEDS: DOCUSATE SODIUM 100 MG CAP PO SCH ×2 (10:05→20:16)
[2020-03-03] MEDS: MAGNESIUM CHLORIDE 64MG DELAYED REL TAB PO SCH (10:05)
--- NOTE | 2020-03-03 16:22 | Anesthesiology Progress Note ---
Date of Service March 03, 2020 late entry; pt seen at 0730; Anesthesia Post Procedure Vital Signs Vital Signs: Temp Pulse Resp BP Pulse Ox 03/03/20 15:06 36.7 C 99 H 16 125/77 94 03/03/20 11:45 37.1 C 92 H 16 117/70 93 03/03/20 07:24 36.8 C 87 16 112/69 90 03/03/20 00:11 36.4 C L 80 14 117/77 93 03/02/20 19:43 36.4 C L 98 H 18 127/76 96 03/02/20 18:53 36.7 C 92 H 18 123/81 96 03/02/20 17:49 36.5 C 99 H 18 112/80 97 03/02/20 17:14 37.0 C 96 H 18 124/85 99 03/02/20 16:45 36.6 C 89 16 115/78 96 Pain Intensity Left Knee: Pain Intensity: 1 Notes Mental Status: alert / awake / arousable and participated in evaluation Nausea / Vomiting: adequately controlled Pain: adequately controlled Airway Patency, RR, SpO2: stable & adequate BP & HR: stable & adequate Hydration State: stable & adequate Neuraxial Anesthesia: was administered and sensory block resolved Anesthetic Complications: no major complications apparent and Pt Satisfied with anesthetic care
--- NOTE | 2020-03-03 16:47 | Hospitalist Consultation ---
Date of Consultation March 03, 2020 Assessment & Plan (1) Dysphagia: * On going issue. Worse today as it has been in the past two years. Patient feels she has hiatal hernia and had been attempting to do behavior modifications * Has not had EGD per her account or work-up by GI or her PCP for this concern. * Has been on multiple rounds of steroids for various processes as well as multiple airways/procedures since September (knee x 2, ET tube) so there could be some tracheomalacia. Also with chronic sinus issues and reported excessive daytime somnolence and snoring as well as thicker neck and could have some underlying sleep apnea as well. Could also be mechanical in nature * Dysphagia screening * Back down on diet for now if able to tolerate some * TSH/FT4 pending * CT Soft tissue neck w/o ordered * Will decrease to liquid diet, add PPI * Consult speech/possible barium swallow if above not revealing (2) Primary osteoarthritis of left knee: * POD #1 s/p LEFT TKA with Dr. Menendez. * CBC with stable h/h although WBC up to 17.5k. Did get steroids in operative period. Repeat in AM. 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 Will place on protonix * See above (4) Shazia's thyroiditis: * Hx biopsy 4 years ago and had followed with [facility] but not had follow up in about 1.5-2 years * TSH/FT4 and CT imaging as above (5) Multiple thyroid nodules: * As above (6) Hypothyroidism: * As above, alternates levothyroxine 50mcg and 75mcg Supervising Physician Co-Signing Physician Notes Patient was seen and examined independently I discussed the case with Areli Layne PAC I reviewed pertinent past medical social family history and also the plan of care and agree with the plan of care. Patient was feeling well after clearing her food bolus. She did note a history of having multiple years worth of swallowing issues that she is not told her physicians about. Known to have thyroid issues and some thyroid nodules followed by Dr. Ramey Signs are stable She has forward posturing of her neck and head likely from some arthritic change to her cervical spine she is previously cervical spine injuries She has no stridor she can swallow her own secretions Her anterior neck is firm there is no significant thyromegaly or lymphadenopathy Cardiac exam is regular without murmurs Are clear without wheezes or crackles she has good air movement Her left knee has a wrap on it from a recent total knee arthroplasty Concern for dysphagia postoperatively possibly could be from anesthesia and local effects from intubation or pre-existing condition such as her thyroid nodules or even osteophytes from her cervical spine We will proceed with liquid diet CT scan of her soft tissue of her neck speech pathology and also consideration of swallowing study Any exceptions will be noted below History of Present Illness Reason for Consultation: trouble swallowing Requesting Physician: Dr Menendez Attending Physician: Rashaad Menendez MD History of Present Illness 59 F with PMHx significant for hypothyroidism/Shazia's, Back Pain, Non- Allergic Chronic Sinusitis, presented for LEFT total knee with Dr. Menendez. Had been doing well post-operatively until eating rice this afternoon which she was unable to swallow even with sip of water and ended up having regurgitation where nursing was concerned about having to perform Heimlich maneuver. She notes that she has had issues with this for years with both solids and liquids, even saliva at times. She notes malaysian food and rices make things worse. She has been trying behavior modification techniques at home like chewing slower and taking smaller bites but has had ongoing issues. Had a colonoscopy about 4 years ago but denies ever having an EGD or evaluation by speech in the past. She felt(s) as if there is a lump in her throat and she is having some worsening pain on the right side of her neck where she feels the lump. She had a needle biopsy years ago for diagnosis of Hashimotos and has had several thyroid nodules. Has been years since last follow up and she notes she hasn't had her TSH checked in almost 2 years she believes. Currently in process of switching PCPs. She has concerns swallowing is getting worse. Has been on chronic steroids over the years for sinus issues and most recently hip bursitis where she finished 40mg daily prednisone. She also had her right knee done in September and then had to have ET tubes replaced for chronic left otitis media and blockage with hearing loss. Then with most recent surgery she has had multiple airways maintained for procedures and this could also play into current situation. Never evaluated by speech therapy in the past for these issues. She does note that she did have some pain with swallowing at times. Endorses snoring and excessive daytime sleepiness but has never been evaluated for sleep apnea either. No noted unexplained weight loss, night sweats or fevers. Had been on Augmentin most recently for sinus infection but switched to Levaquin and finished that course of treatment on Friday. Did not take steroids they ordered at that time for fear of repeat infection. Allergies Allergy/AdvReac Type Severity Reaction Status Date / Time No Known Drug Allergies Allergy Unknown Verified 02/25/20 11:31 Home Medications Home Medications Medication Instructions Recorded Confirmed Type cholecalciferol (vitamin D3) 50 4,000 units PO QAM tab 11/27/18 02/25/20 History mcg (2,000 unit) tablet cyanocobalamin (vitamin B-12) 1,000 mcg PO QAM #30 cap 11/27/18 02/25/20 History 1,000 mcg capsule duloxetine 60 mg capsule,delayed 60 mg PO QAM #90 cap 09/29/19 02/25/20 Rx release Slow-Mag 71.5 mg PO DAILY 10/01/19 02/25/20 History levothyroxine 50 mcg PO Q OTHER DAY 10/01/19 02/25/20 History levothyroxine 75 mcg PO Q OTHER DAY 10/01/19 02/25/20 History acetaminophen 1,000 mg PO UD PRN 12/01/19 02/25/20 History zaleplon 10 mg capsule 10 mg PO HS PRN #30 cap 01/07/20 02/25/20 Rx naproxen sodium [Aleve] 220 mg PO BID PRN 02/14/20 02/25/20 History amoxicillin 875 mg-potassium 1 tab PO Q12H #20 tab 02/22/20 02/25/20 Rx clavulanate 125 mg tablet levofloxacin 500 mg tablet 500 mg PO DAILY #5 tab 02/25/20 02/25/20 Rx prednisone 20 mg tablet 20 mg PO DAILY #18 tab 02/25/20 02/25/20 Rx acetaminophen 1,000 mg PO Q8 #60 tab 03/03/20 Rx aspirin 81 mg PO BID #60 tab 03/03/20 Rx cefadroxil 500 mg PO BID #14 cap 03/03/20 Rx celecoxib [Celebrex] 200 mg PO BID #60 cap 03/03/20 Rx oxycodone 5 - 10 mg PO .Q4h-6h PRN #30 tab 03/03/20 Rx MDD 6 Patient History Medical History Acid reflux Chronic back pain Shazia's thyroiditis History of depression Hypothyroidism Multiple thyroid nodules Obesity Primary osteoarthritis of right knee Sinusitis, chronic TMJ click no locking Viral hepatitis B Vitamin D deficiency Surgical History H/O section H/O hernia repair H/O tubal ligation History of arthroscopy BILAT KNEES History of colonoscopy History of ear surgery Left ear tube removal, Left myringotomy tube insertion: 12/03/19: LMA#4 at [facility] Hx of biopsy THYROID Hx of biopsy LIVER Hx of decompression of ulnar nerve RIGHT S/P total knee arthroplasty 10/21/19 Dr. Rashaad Menendez- Right Status post myringotomy with insertion of tube 02/05/2019 [facility] Family History Unknown FHx: allergies Cardiac disorder Hypothyroidism Myocardial infarction Sinusitis Hypertension Stroke Father , Mid 50's FHx: kidney cancer Kidney stones Myocardial infarction Hypertension Stroke Grandmother No problems noted. Grandmother (Maternal) Breast cancer Aunt Family history of diabetes mellitus Denies family history of Ovarian cancer Prostate cancer Colorectal cancer Social History Smoking Status: Never smoker Second Hand Exposure: No; Do You Dip or Chew Tobacco: No; Tobacco Cessation Education Requested by Patient: No Hx Alcohol Use: No Hx Substance Use: No Preferred Language: Swedish Communication Ability: Effective Visual Impairment: No Limitations Hearing Ability: Normal Laundry Housekeeping Aide Required: No Beliefs That Will Affect Care: None marital status: Current Living Situation: Alone current occupational status: employed 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 [employer] Other Information That Helps Us Care for You: No Feels Safe at Home: Yes Safety Concerns: Feels Safe At This Time Childhood Exposure to Second-Hand Smoke: No Dental Care, Regularly: Yes Physical Activity Frequency: 5-6 Times per Week Seatbelt Use: always Sunscreen Use: Yes Assistive Devices: Walker Review of Systems Review of Systems: All systems reviewed & are unremarkable except as noted in HPI & below Physical Exam Constitutional: WD/WN, vitals as above + obese; no acute distress Eyes: + anicteric sclerae; no eyelid abnormality ENMT: Mallampati II-III post nasal drip nasal bogginess Neck: trachea midline Thyroid: + thyroid asymmetrical; + abnormal thyroid (multiple nodules, L sided most prominent) Respiratory: normal respiratory effort, lungs clear to auscultation Cardiovascular: RRR, no murmur, no edema Gastrointestinal (Abdomen): normal bowel sounds, soft, nontender, no hepatosplenomegaly Musculoskeletal: surgical incision to R knee healed dressing to L knee with Prevena intact and functioning good strength dorsiflexion/plantar flexion minimal calf tenderness palpable pulses bilaterally Skin: warm, dry Neurologic: PERRL, EOMI, accommodation nl, no face palsy, no dysarthria moves all extremities and awake Psychiatric: A+Ox3, euthymic affect Lymphatic: + lymphadenopathy Results & Data Results & Data ([facility]) Vital Signs (Past 12 Hours) Vital Signs Temp Pulse Resp BP Pulse Ox 03/03/20 15:06 36.7 C 99 H 16 125/77 94 03/03/20 11:45 37.1 C 92 H 16 117/70 93 03/03/20 07:24 36.8 C 87 16 112/69 90 Laboratory Results 03/03/20 03/03/20 03/03/20 Range/Units 06:17 06:17 06:17 WBC (4.8-10.8) K/uL RBC (4.2-5.4) M/uL Hgb (12.0-16.0) g/dL Hct (37-47) % MCV (80-100) fL MCH (25-34) pg MCHC (32-36) g/dL RDW Std Deviation (36.4-46.3) fL RDW Coeff of Wilian (11.5-14.5) % Plt Count (130-400) K/uL MPV (7.4-10.4) fL Sodium 139 (136-145) mmol/L Potassium 3.9 (3.5-5.1) mmol/L Chloride 108 H (98-107) mmol/L Carbon Dioxide 26 (21-32) mmol/L Anion Gap 5.0 (3-11) BUN 14 (7-18) mg/dl Creatinine 0.96 (0.6-1.2) mg/dl Est Cr Clr Drug Dosing 62.3 ml/min Est GFR ( Amer) 76.1 Est GFR (Non-Af Amer) 65.7 BUN/Creatinine Ratio 14.1 (10-20) Glucose 135 H (70-99) mg/dl Calcium 8.4 L (8.5-10.1) mg/dl TSH Pending Hepatitis C Ab Screen Neg (Neg) 03/03/20 Range/Units 06:17 WBC 17.57 H (4.8-10.8) K/uL RBC 4.17 L (4.2-5.4) M/uL Hgb 12.9 (12.0-16.0) g/dL Hct 38.6 (37-47) % MCV 92.6 (80-100) fL MCH 30.9 (25-34) pg MCHC 33.4 (32-36) g/dL RDW Std Deviation 44.9 (36.4-46.3) fL RDW Coeff of Wilian 13.2 (11.5-14.5) % Plt Count 377 (130-400) K/uL MPV 9.6 (7.4-10.4) fL Sodium (136-145) mmol/L Potassium (3.5-5.1) mmol/L Chloride (98-107) mmol/L Carbon Dioxide (21-32) mmol/L Anion Gap (3-11) BUN (7-18) mg/dl Creatinine (0.6-1.2) mg/dl Est Cr Clr Drug Dosing ml/min Est GFR ( Amer) Est GFR (Non-Af Amer) BUN/Creatinine Ratio (10-20) Glucose (70-99) mg/dl Calcium (8.5-10.1) mg/dl TSH Hepatitis C Ab Screen (Neg) PG Care Time/CCT Total # of Minutes Spent Total Time Spent with Patient: Total time spent is greater than 50% in coordination of care (as documented) at patient's floor/unit and/or counseling patient: Coding Level of Care Code 28125 Office/OBS Consult Lvl 3 Diagnoses Dysphagia R13.10 Primary osteoarthritis of left knee M17.12 Acid reflux K21.9 Shazia's thyroiditis E06.3 Multiple thyroid nodules E04.2 Hypothyroidism E03.9
[2020-03-03] MEDS: PANTOprazole 40 MG TAB PO SCH (17:43)
[2020-03-03] MEDS: SENNA 8.6 MG TAB PO SCH (20:16)
[2020-03-04] MEDS: ACETAMINOPHEN 500 MG TAB PO SCH ×3 (04:30→19:58)
[2020-03-04] MEDS ORDERED: LEVOTHYROXINE SODIUM 75 MCG TABLET PO SCH (06:30)
[2020-03-04 06:57] LABS: Hematocrit (blood only) 35.2 % (37-47); Hemoglobin 11.4 g/dL (12.0-16.0); Mean Corpuscular Hemoglobin 30.2 pg (25-34); Mean Corpuscular Hgb Conc 32.4 g/dL (32-36); Mean Corpuscular Volume 93.1 fL (80-100); Mean Platelet Volume 9.4 fL (7.4-10.4); Platelet Count 300 K/uL (130-400); RDW Coefficient of Variation 13.6 % (11.5-14.5); RDW Standard Deviation 46.3 fL (36.4-46.3); Red Blood Count 3.78 M/uL (4.2-5.4); White Blood Count 11.27 K/uL (4.8-10.8)
[2020-03-04 07:30] LABS: BUN Creatinine Ratio 15.1 (10-20); Est GFR (African American) 107.7; Potassium 3.6 mmol/L (3.5-5.1)
--- NOTE | 2020-03-04 08:25 | Orthopedic Progress Note ---
Date of Service March 04, 2020 Assessment & Plan (1) Primary osteoarthritis of left knee: Admission and Anticipated Discharge Date Admission Date: 59 yo female stable POD #2 s/p left TKA doing well, bout of dysphagia yesterday, neck CT results pending, possible barium swallow, liquid diet 1. Med management 2. DVT prophylaxis- ASA, SCDs 3. PT/OT 4. D/C planning- home w/ OPPT when stable per medicine Subjective Pt resting in bed, comfortable, pain controlled Physical Exam Physical Exam: ABDI dressing in place left knee, pt able to do SLR, toes mobile, NVI Results & Data ([facility]) Vital Signs (Past 12 Hours) Vital Signs Temp Pulse Pulse Resp BP Pulse Ox Pulse Ox 03/04/20 07:30 36.8 C 91 H 18 132/77 95 03/04/20 04:01 78 16 97 03/04/20 03:33 80 97 03/04/20 02:53 96 03/04/20 00:49 97 03/03/20 23:57 81 94 03/03/20 23:07 36.8 C 88 16 142/84 H 94 03/03/20 21:46 85 94 Laboratory Results 03/04/20 03/04/20 03/03/20 Range/Units 06:34 06:34 06:17 WBC 11.27 H (4.8-10.8) K/uL RBC 3.78 L (4.2-5.4) M/uL Hgb 11.4 L (12.0-16.0) g/dL Hct 35.2 L (37-47) % MCV 93.1 (80-100) fL MCH 30.2 (25-34) pg MCHC 32.4 (32-36) g/dL RDW Std Deviation 46.3 (36.4-46.3) fL RDW Coeff of Wilian 13.6 (11.5-14.5) % Plt Count 300 (130-400) K/uL MPV 9.4 (7.4-10.4) fL Sodium 143 (136-145) mmol/L Potassium 3.6 (3.5-5.1) mmol/L Chloride 110 H (98-107) mmol/L Carbon Dioxide 29 (21-32) mmol/L Anion Gap 4.0 (3-11) BUN 11 (7-18) mg/dl Creatinine 0.72 (0.6-1.2) mg/dl Est Cr Clr Drug Dosing 83.0 ml/min Est GFR ( Amer) 107.7 Est GFR (Non-Af Amer) 93.0 BUN/Creatinine Ratio 15.1 (10-20) Glucose 102 H (70-99) mg/dl Calcium 8.0 L (8.5-10.1) mg/dl TSH 0.668 (0.300-4.500) uIu/ml Hepatitis C Ab Screen (Neg) 03/03/20 Range/Units 06:17 WBC (4.8-10.8) K/uL RBC (4.2-5.4) M/uL Hgb (12.0-16.0) g/dL Hct (37-47) % MCV (80-100) fL MCH (25-34) pg MCHC (32-36) g/dL RDW Std Deviation (36.4-46.3) fL RDW Coeff of Wilian (11.5-14.5) % Plt Count (130-400) K/uL MPV (7.4-10.4) fL Sodium (136-145) mmol/L Potassium (3.5-5.1) mmol/L Chloride (98-107) mmol/L Carbon Dioxide (21-32) mmol/L Anion Gap (3-11) BUN (7-18) mg/dl Creatinine (0.6-1.2) mg/dl Est Cr Clr Drug Dosing ml/min Est GFR ( Amer) Est GFR (Non-Af Amer) BUN/Creatinine Ratio (10-20) Glucose (70-99) mg/dl Calcium (8.5-10.1) mg/dl TSH (0.300-4.500) uIu/ml Hepatitis C Ab Screen Neg (Neg) Diagnostic Findings CT results pending
--- NOTE | 2020-03-04 08:27 | CT Scan Report ---
CT soft tissue neck wo con CT DOSE: 417.70 mGy.cm CLINICAL HISTORY: Neck pain and dysphagia TECHNIQUE: Helical images were acquired. No intravenous contrast was administered A dose lowering te chnique was utilized adhering to the principles of ALARA. COMPARISON STUDY: Thyroid ultrasound performed October 2014 FINDINGS: Lung apices are unremarkable in appearance. There is a multinodular thyroid gland. This was described on a prior ultrasound performed in October 5 No salivary gland masses are visualized in this noncontrast study. There is no pathologic cervical lymphadenopathy. There is borderline vallecular soft tissue thickening. There is no evidence of airway compromise. The epiglottis appears unremarkable in appearance IMPRESSION: 1. Examination limited due to lack of intravenous contrast 2. Borderline vallecular soft tissue thickening. 3. No evidence of pathologic adenopathy. 4. No evidence of airway compromise. 5. Normal-appearing epiglottis ACT 112: Negative or not required by law. Electronically signed by: Nam Rinaldi M.D. 03/04/2020 8:25 AM
[2020-03-04] MEDS: DULoxetine HCL 60 MG CAP PO SCH (09:02)
[2020-03-04] MEDS: CYANOCOBALAMIN 500 MCG TABLET (VITAMIN B-12) PO SCH (09:02)
[2020-03-04] MEDS: MULTIVITAMIN TAB PO SCH (09:03)
[2020-03-04] MEDS: MAGNESIUM CHLORIDE 64MG DELAYED REL TAB PO SCH (09:03)
[2020-03-04] MEDS: CHOLECALCIFEROL 1,000 UNITS 25 MCG TAB PO SCH (09:03)
[2020-03-04] MEDS: ASPIRIN 81 MG ECTAB PO SCH ×2 (09:04→19:59)
[2020-03-04] MEDS: DOCUSATE SODIUM 100 MG CAP PO SCH ×2 (09:04→19:58)
[2020-03-04] MEDS: CeleBREX 200 MG CAP PO SCH ×2 (09:04→19:58)
--- NOTE | 2020-03-04 09:05 | Hospitalist Progress Note ---
Date of Service March 04, 2020 Assessment & Plan (1) Dysphagia: * On going issue. Worse 03/03 as it has been in the past two years. Patient felt she has hiatal hernia and had been attempting to do behavior modifications * Has not had EGD per her account or work-up by GI or her PCP for this concern. * Has been on multiple rounds of steroids for various processes as well as multiple airways/procedures since September (knee x 2, ET tube) so there could be some tracheomalacia. Also with chronic sinus issues and reported excessive daytime somnolence and snoring as well as thicker neck and could have some underlying sleep apnea as well. Could also be mechanical in nature * Back down on diet for now if able to tolerate some * TSH wnl * CT Soft tissue neck without evidence of airway compromise * Speech evaluated, diet adjusted accordingly * NPO after midnight for barium swallow +/- video swallow by speech if abn noted * Continue PPI (2) Primary osteoarthritis of left knee: * POD #2 s/p LEFT TKA with Dr. Menendez. 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 Protonix as above (4) Shazia's thyroiditis: * Hx biopsy 4 years ago and had followed with [facility]/Will[facility] Jernigan but not had follow up in about 1.5-2 years * TSH/FT4 and CT imaging as above (5) Multiple thyroid nodules: * As above, unchanged (6) Hypothyroidism: * As above, alternates levothyroxine 50mcg and 75mcg Dispo: overnight sleep study tonight and barium swallow in AM +/- video swallow Admission and Anticipated Discharge Date Admission Date: March 02, 2020 Subjective Patient evaluated this morning. Reviewed CT and plans for barium swallow in AM with possible video swallow. She was seen by speech and demonstrated education about tip to help with chewing/swallowing and mastication. Diet changed. Overnight pulse ox study discussed and plans for repeat this evening as she was placed on O2 while on the study. No fever, chill, chest pain, shortness of breath, abdominal pain, nausea at this time. Had just been medicated for pain with IV medications as ordered and well controlled. Questions/concerns addressed at this time. Review of Systems Review of Systems: All systems reviewed & are unremarkable except as noted in HPI & below Physical Exam Constitutional: WD/WN, vitals as above + obese; no acute distress Eyes: + anicteric sclerae; no eyelid abnormality ENMT: Mallampati Class: III no stridor Neck: trachea midline Thyroid: + abnormal thyroid (multiple nodules, L sided most prominent) Respiratory: normal respiratory effort, lungs clear to auscultation Cardiovascular: RRR, no murmur, no edema Gastrointestinal (Abdomen): normal bowel sounds, soft, nontender, no hepatosplenomegaly Musculoskeletal: dressing to L knee c/d/i Prevena functioning NVI pulses palpable Neurologic: PERRL, EOMI, accommodation nl, no face palsy, no dysarthria moves all extremities and awake Psychiatric: A+Ox3, euthymic affect Results & Data Results & Data ([facility]) Vital Signs (Past 12 Hours) Vital Signs Temp Pulse Pulse Resp BP Pulse Ox Pulse Ox 03/04/20 07:30 36.8 C 91 H 18 132/77 95 03/04/20 04:01 78 16 97 03/04/20 03:33 80 97 03/04/20 02:53 96 03/04/20 00:49 97 03/03/20 23:57 81 94 03/03/20 23:07 36.8 C 88 16 142/84 H 94 03/03/20 21:46 85 94 Laboratory Results 03/04/20 03/04/20 03/03/20 Range/Units 06:34 06:34 06:17 WBC 11.27 H (4.8-10.8) K/uL RBC 3.78 L (4.2-5.4) M/uL Hgb 11.4 L (12.0-16.0) g/dL Hct 35.2 L (37-47) % MCV 93.1 (80-100) fL MCH 30.2 (25-34) pg MCHC 32.4 (32-36) g/dL RDW Std Deviation 46.3 (36.4-46.3) fL RDW Coeff of Wilian 13.6 (11.5-14.5) % Plt Count 300 (130-400) K/uL MPV 9.4 (7.4-10.4) fL Sodium 143 (136-145) mmol/L Potassium 3.6 (3.5-5.1) mmol/L Chloride 110 H (98-107) mmol/L Carbon Dioxide 29 (21-32) mmol/L Anion Gap 4.0 (3-11) BUN 11 (7-18) mg/dl Creatinine 0.72 (0.6-1.2) mg/dl Est Cr Clr Drug Dosing 83.0 ml/min Est GFR ( Amer) 107.7 Est GFR (Non-Af Amer) 93.0 BUN/Creatinine Ratio 15.1 (10-20) Glucose 102 H (70-99) mg/dl Calcium 8.0 L (8.5-10.1) mg/dl TSH 0.668 (0.300-4.500) uIu/ml Diagnostic Findings CT Soft Tissue Neck IMPRESSION: 1. Examination limited due to lack of intravenous contrast 2. Borderline vallecular soft tissue thickening. 3. No evidence of pathologic adenopathy. 4. No evidence of airway compromise. 5. Normal-appearing epiglottis PG Care Time/CCT Total # of Minutes Spent Total Time Spent with Patient: Total time spent is greater than 50% in coordination of care (as documented) at patient's floor/unit and/or counseling patient: Coding Level of Care Code 23674 Subseq Obs Care Lvl 2 Diagnoses Dysphagia R13.10 Primary osteoarthritis of left knee M17.12 Acid reflux K21.9 Shazia's thyroiditis E06.3 Multiple thyroid nodules E04.2 Hypothyroidism E03.9
[2020-03-04] MEDS: PANTOprazole 40 MG TAB PO SCH (10:00)
[2020-03-04] MEDS: oxyCODONE HCL IR 5 MG TAB (IMMEDIATE RELEASE) PO PRN ×2 (10:37→19:57)
[2020-03-04] MEDS: HYDROmorphone INJ 0.5 MG/0.5 ML SYR IV PRN (11:47)
[2020-03-04] MEDS: SENNA 8.6 MG TAB PO SCH (19:58)
[2020-03-05] MEDS: oxyCODONE HCL IR 5 MG TAB (IMMEDIATE RELEASE) PO PRN ×2 (02:41→11:50)
[2020-03-05] MEDS: LEVOTHYROXINE SODIUM 50 MCG TABLET PO SCH (05:52)
[2020-03-05] MEDS: ACETAMINOPHEN 500 MG TAB PO SCH (05:52)
--- NOTE | 2020-03-05 08:10 | Orthopedic Progress Note ---
Date of Service March 05, 2020 Assessment & Plan (1) Primary osteoarthritis of left knee: Admission and Anticipated Discharge Date Admission Date: 59 yo female stable POD #3 s/p left TKA, dysphagia postop, improved with neck CT, speech therapy recommendations, barium swallow pending, can continue workup as outpt 1. Med management 2. DVT prophylaxis- ASA, SCDs 3. PT/OT 4. D/C planning- home w/ OPPT Subjective Pt resting comfortably in bed, looks well, feels well, back to regular diet, appreciate speech therapy input, scheduled for barium swallow today Physical Exam Physical Exam: ABDI dressing in place left knee, toes mobile, NVI Results & Data ([facility]) Vital Signs (Past 12 Hours) Vital Signs Temp Pulse Pulse Resp BP Pulse Ox Pulse Ox 03/05/20 07:29 36.7 C 99 H 16 134/80 96 03/05/20 03:46 78 96 03/05/20 00:12 36.8 C 88 18 138/84 97 03/05/20 00:10 83 95 03/05/20 00:05 89 83 L 03/04/20 21:52 89 93
--- NOTE | 2020-03-05 09:06 | Hospitalist Progress Note ---
Date of Service March 05, 2020 Assessment & Plan (1) Dysphagia: * On going issue. Worse 03/03 as it has been in the past two years. Patient felt she has hiatal hernia and had been attempting to do behavior modifications * Has not had EGD per her account or work-up by GI or her PCP for this concern. * Has been on multiple rounds of steroids for various processes as well as multiple airways/procedures since September (knee x 2, ET tube) so there could be some tracheomalacia. Also with chronic sinus issues and reported excessive daytime somnolence and snoring as well as thicker neck and could have some underlying sleep apnea as well. Could also be mechanical in nature * Back down on diet for now if able to tolerate some * TSH wnl * CT Soft tissue neck without evidence of airway compromise * Speech evaluated, diet adjusted accordingly * Barium swallow unable to be completed at discharge and will be arranged as outpatient. * Could consider continuing PPI if she would like at discretion of PCP. Pending barium swallow would recommend outpatient EGD with GI for further evaluation if mechanical abn not seen on swallow study. * (2) Primary osteoarthritis of left knee: * POD #3 s/p LEFT TKA with Dr. Menendez. 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 Will need outpatient sleep study arranged by PCP Dispo: discharge planned by primary service for today. Medicine will sign off Admission and Anticipated Discharge Date Admission Date: March 02, 2020 Subjective Patient seen this morning. Ready for discharge. Discussed overnight pulse ox study and CM arranging for O2 at discharge. Unable to perform barium swallow on weekend. Patient doing well with mechanical/behavioral modifications and ok for discharge and will have outpatient barium swallow at discharge. No fever, chill, chest pain, shortness of breath, abdominal pain, dysuria at this time. Review of Systems Review of Systems: All systems reviewed & are unremarkable except as noted in HPI & below Physical Exam Constitutional: WD/WN, vitals as above + obese; no acute distress Eyes: + anicteric sclerae; no eyelid abnormality ENMT: Mallampati Class: III Neck: trachea midline Thyroid: + abnormal thyroid (multiple nodules, L sided most prominent) Respiratory: normal respiratory effort, lungs clear to auscultation Cardiovascular: RRR, no murmur, no edema Gastrointestinal (Abdomen): normal bowel sounds, soft, nontender, no hepatosplenomegaly Musculoskeletal: dressing to L knee c/d/i with Prevena NVI pulses palpable bilaterally Neurologic: PERRL, EOMI, accommodation nl, no face palsy, no dysarthria moves all extremities and awake Psychiatric: A+Ox3, euthymic affect Results & Data Results & Data ([facility]) Vital Signs (Past 12 Hours) Vital Signs Temp Pulse Pulse Resp BP Pulse Ox Pulse Ox 03/05/20 07:29 36.7 C 99 H 16 134/80 96 03/05/20 03:46 78 96 03/05/20 00:12 36.8 C 88 18 138/84 97 03/05/20 00:10 83 95 03/05/20 00:05 89 83 L 03/04/20 21:52 89 93 PG Care Time/CCT Total # of Minutes Spent Total Time Spent with Patient: Total time spent is greater than 50% in coordination of care (as documented) at patient's floor/unit and/or counseling patient: Coding Level of Care Code 40374 Subseq Obs Care Lvl 2 Diagnoses Dysphagia R13.10 Primary osteoarthritis of left knee M17.12 Acid reflux K21.9 Shazia's thyroiditis E06.3 Multiple thyroid nodules E04.2 Hypothyroidism E03.9
[2020-03-05] MEDS: ASPIRIN 81 MG ECTAB PO SCH (09:59)
[2020-03-05] MEDS: DULoxetine HCL 60 MG CAP PO SCH (09:59)
[2020-03-05] MEDS: CHOLECALCIFEROL 1,000 UNITS 25 MCG TAB PO SCH (09:59)
[2020-03-05] MEDS: CYANOCOBALAMIN 500 MCG TABLET (VITAMIN B-12) PO SCH (10:00)
[2020-03-05] MEDS: PANTOprazole 40 MG TAB PO SCH (10:00)
[2020-03-05] MEDS: MAGNESIUM CHLORIDE 64MG DELAYED REL TAB PO SCH (10:00)
[2020-03-05] MEDS: MULTIVITAMIN TAB PO SCH (10:00)
[2020-03-05] MEDS: DOCUSATE SODIUM 100 MG CAP PO SCH (10:01)
[2020-03-05] MEDS: CeleBREX 200 MG CAP PO SCH (10:01)
--- NOTE | 2020-03-05 17:51 | Discharge Summary ---
Date of Service March 05, 2020 Admission HPI Per Admitting Provider 59 year old female with PMHx significant for hypothyroidism, back pain, and diagnosed as carrier of Hep B who presents with ongoing left knee pain. She has failed conservative measures including injections, rehab, and anti- inflammatories. Pain is affecting her ability to carry out her daily activities. She would like to proceed with left knee replacement. Previously had right knee replacement and has done well with. Patient denies headaches, sweats, fevers, chills, double vision, blurred vision, cough, sore throat, dysphagia, chest pain, sob, wheezing, n/v/d/c, numbness, tingling, fatigue, urinary symptoms, mo od disorders. ROS positive for left knee pain and stiffness. Admission Exam Per Admitting Provider Constitutional: well developed and well nourished; no acute distress Eyes: PERRL, conjunctivae normal, anicteric sclerae ENMT: external ear and nose normal, oropharynx normal Neck: trachea midline, no thyromegaly Respiratory: normal respiratory effort, lungs clear to auscultation Cardiovascular: RRR, no murmur, no edema Musculoskeletal: Left knee: Medial joint line tenderness, mild effusion. ROM 1-125. Stable to valgus and varus stress. Positive Dl's. Skin: no rashes, warm and dry Neurologic: patellar DTR's 2+ bilat, sensation intact Psychiatric: A+Ox3, euthymic affect Principal Diagnosis Left knee osteoarthritis Dysphagia Nocturnal hypoxia Discharge Exam Constitutional well developed and well nourished; no acute distress Eyes PERRL, conjunctivae normal, anicteric sclerae ENMT external ear and nose normal, oropharynx normal Neck trachea midline, no thyromegaly Respiratory normal respiratory effort, lungs clear to auscultation Cardiovascular RRR, no murmur, no edema Skin no rashes, warm and dry Neurologic patellar DTR's 2+ bilat, sensation intact Psychiatric A+Ox3, euthymic affect Discharge Data Allergies Allergy/AdvReac Type Severity Reaction Status Date / Time No Known Drug Allergies Allergy Unknown Verified 02/25/20 11:31 Consultations 03/02/20 16:50 Consult Case Management - Discharge Planning Routine 03/03/20 15:40 Consult Hospitalist Routine Procedures Performed Operation Date: 03/02/20 12:15 Actual Procedures p Left Total Knee Arthroplasty(Left) - Rashaad Menendez MD Ordered Studies 03/02/20 05:00 US - OR guided needle placemen Routine 03/03/20 17:07 CT soft tissue neck wo con Urgent 03/04/20 09:03 FL barium swallow Routine Hospital Course (1) Primary osteoarthritis of left knee: Patient presented for same day admission following left total knee arthroplasty on 03/02/20. She tolerated procedure well. On POD#1 patient had an episode of dysphagia and food bolus that she was able to clear. Dr. Law of medical service was consulted for medical management due to her dysphagia during admission. She was also noted to have nocturnal hypoxia. Post-operatively, her activity was progressed and well tolerated. They participated in PT with ambulation distance of 350 feet. ROM of operative knee reached 90degrees. Labs remained stable- lowest hemoglobin recorded: 11.4. Pain controlled on oral medications. Please refer to daily progress notes and PT notes for complete details. After exam on 03/05/20, patient was felt to be stable for discharge home with plans on outpatient PT. Her dysphagia will be further worked up as an outpatient. She will be set up for home oxygen for night use as well. She will follow up with her PCP for above issues. Patient will f/u in the office in about 2 weeks for further evaluation including x-rays and incision check, sooner if having any issues or concerns. Lab Results 02/09/20 02/09/20 02/09/20 Range/Units 14:02 14:02 14:02 WBC 14.60 H (4.8-10.8) K/uL RBC 4.95 (4.2-5.4) M/uL Hgb 15.2 (12.0-16.0) g/dL Hct 45.9 (37-47) % MCV 92.7 (80-100) fL MCH 30.7 (25-34) pg MCHC 33.1 (32-36) g/dL RDW Std Deviation 46.3 (36.4-46.3) fL RDW Coeff of Wilian 13.7 (11.5-14.5) % Plt Count 362 (130-400) K/uL MPV 10.1 (7.4-10.4) fL Immature Gran % (Auto) 0.5 % Neut % (Auto) 77.0 % Lymph % (Auto) 15.4 % [place] % (Auto) 6.1 % Eos % (Auto) 0.9 % Baso % (Auto) 0.1 % Neut # (Auto) 11.23 H (1.4-6.5) K/uL Lymph # (Auto) 2.25 (1.2-3.4) K/uL [place] # (Auto) 0.89 H (0.11-0.59) K/uL Eos # (Auto) 0.13 (0-0.5) K/uL Baso # (Auto) 0.02 (0-0.2) K/uL Immature Gran # (Auto) 0.08 H (0.00-0.02) K/uL PT 10.5 (9.0-12.0) Seconds INR 1.0 (0.9-1.1) APTT 25.7 (21.0-31.0) Seconds PTT Ratio 0.9 Sodium 141 (136-145) mmol/L Potassium 3.3 L (3.5-5.1) mmol/L Chloride 107 (98-107) mmol/L Carbon Dioxide 28 (21-32) mmol/L Anion Gap 6.0 (3-11) BUN 22 H (7-18) mg/dl Creatinine 0.84 (0.6-1.2) mg/dl Est Cr Clr Drug Dosing ml/min Est GFR ( Amer) 89.4 Est GFR (Non-Af Amer) 77.2 BUN/Creatinine Ratio 26.4 H (10-20) Glucose 98 (70-99) mg/dl Estimat Average Glucose mg/dl Hemoglobin A1c (4.5-5.6) % Calcium 9.1 (8.5-10.1) mg/dl Albumin 3.6 (3.4-5.0) gm/dl TSH (0.300-4.500) uIu/ml Urine Color Urine Appearance (Clear) Urine pH (4.5-7.5) Ur Specific [place] (1.000-1.030) Urine Protein (Negative) Urine Glucose (UA) (Negative) Urine Ketones (Negative) Urine Blood (Negative) Urine Nitrite (Negative) Urine Bilirubin (Negative) Urine Urobilinogen (Negative) Ur Leukocyte Esterase (Negative) Hepatitis C Ab Screen (Neg) Blood Type Antibody Screen 10/02/09/20 02/09/20 Range/Units 14:02 14:02 14:02 WBC (4.8-10.8) K/uL RBC (4.2-5.4) M/uL Hgb (12.0-16.0) g/dL Hct (37-47) % MCV (80-100) fL MCH (25-34) pg MCHC (32-36) g/dL RDW Std Deviation (36.4-46.3) fL RDW Coeff of Wilian (11.5-14.5) % Plt Count (130-400) K/uL MPV (7.4-10.4) fL Immature Gran % (Auto) % Neut % (Auto) % Lymph % (Auto) % [place] % (Auto) % Eos % (Auto) % Baso % (Auto) % Neut # (Auto) (1.4-6.5) K/uL Lymph # (Auto) (1.2-3.4) K/uL [place] # (Auto) (0.11-0.59) K/uL Eos # (Auto) (0-0.5) K/uL Baso # (Auto) (0-0.2) K/uL Immature Gran # (Auto) (0.00-0.02) K/uL PT (9.0-12.0) Seconds INR (0.9-1.1) APTT (21.0-31.0) Seconds PTT Ratio Sodium (136-145) mmol/L Potassium (3.5-5.1) mmol/L Chloride (98-107) mmol/L Carbon Dioxide (21-32) mmol/L Anion Gap (3-11) BUN (7-18) mg/dl Creatinine (0.6-1.2) mg/dl Est Cr Clr Drug Dosing ml/min Est GFR ( Amer) Est GFR (Non-Af Amer) BUN/Creatinine Ratio (10-20) Glucose (70-99) mg/dl Estimat Average Glucose 126 mg/dl Hemoglobin A1c 6.0 H (4.5-5.6) % Calcium (8.5-10.1) mg/dl Albumin (3.4-5.0) gm/dl TSH (0.300-4.500) uIu/ml Urine Color Yellow Urine Appearance Clear (Clear) Urine pH 5.0 (4.5-7.5) Ur Specific [place] 1.028 (1.000-1.030) Urine Protein Negative (Negative) Urine Glucose (UA) Negative (Negative) Urine Ketones Negative (Negative) Urine Blood Negative (Negative) Urine Nitrite Negative (Negative) Urine Bilirubin Negative (Negative) Urine Urobilinogen Negative (Negative) Ur Leukocyte Esterase Negative (Negative) Hepatitis C Ab Screen (Neg) Blood Type O Positive Antibody Screen NEGATIVE 03/03/20 03/03/20 03/03/20 Range/Units 06:17 06:17 06:17 WBC 17.57 H (4.8-10.8) K/uL RBC 4.17 L (4.2-5.4) M/uL Hgb 12.9 (12.0-16.0) g/dL Hct 38.6 (37-47) % MCV 92.6 (80-100) fL MCH 30.9 (25-34) pg MCHC 33.4 (32-36) g/dL RDW Std Deviation 44.9 (36.4-46.3) fL RDW Coeff of Wilian 13.2 (11.5-14.5) % Plt Count 377 (130-400) K/uL MPV 9.6 (7.4-10.4) fL Immature Gran % (Auto) % Neut % (Auto) % Lymph % (Auto) % [place] % (Auto) % Eos % (Auto) % Baso % (Auto) % Neut # (Auto) (1.4-6.5) K/uL Lymph # (Auto) (1.2-3.4) K/uL [place] # (Auto) (0.11-0.59) K/uL Eos # (Auto) (0-0.5) K/uL Baso # (Auto) (0-0.2) K/uL Immature Gran # (Auto) (0.00-0.02) K/uL PT (9.0-12.0) Seconds INR (0.9-1.1) APTT (21.0-31.0) Seconds PTT Ratio Sodium 139 (136-145) mmol/L Potassium 3.9 (3.5-5.1) mmol/L Chloride 108 H (98-107) mmol/L Carbon Dioxide 26 (21-32) mmol/L Anion Gap 5.0 (3-11) BUN 14 (7-18) mg/dl Creatinine 0.96 (0.6-1.2) mg/dl Est Cr Clr Drug Dosing 62.3 ml/min Est GFR ( Amer) 76.1 Est GFR (Non-Af Amer) 65.7 BUN/Creatinine Ratio 14.1 (10-20) Glucose 135 H (70-99) mg/dl Estimat Average Glucose mg/dl Hemoglobin A1c (4.5-5.6) % Calcium 8.4 L (8.5-10.1) mg/dl Albumin (3.4-5.0) gm/dl TSH (0.300-4.500) uIu/ml Urine Color Urine Appearance (Clear) Urine pH (4.5-7.5) Ur Specific [place] (1.000-1.030) Urine Protein (Negative) Urine Glucose (UA) (Negative) Urine Ketones (Negative) Urine Blood (Negative) Urine Nitrite (Negative) Urine Bilirubin (Negative) Urine Urobilinogen (Negative) Ur Leukocyte Esterase (Negative) Hepatitis C Ab Screen Neg (Neg) Blood Type Antibody Screen 03/03/20 03/04/20 03/04/20 Range/Units 06:17 06:34 06:34 WBC 11.27 H (4.8-10.8) K/uL RBC 3.78 L (4.2-5.4) M/uL Hgb 11.4 L (12.0-16.0) g/dL Hct 35.2 L (37-47) % MCV 93.1 (80-100) fL MCH 30.2 (25-34) pg MCHC 32.4 (32-36) g/dL RDW Std Deviation 46.3 (36.4-46.3) fL RDW Coeff of Wilian 13.6 (11.5-14.5) % Plt Count 300 (130-400) K/uL MPV 9.4 (7.4-10.4) fL Immature Gran % (Auto) % Neut % (Auto) % Lymph % (Auto) % [place] % (Auto) % Eos % (Auto) % Baso % (Auto) % Neut # (Auto) (1.4-6.5) K/uL Lymph # (Auto) (1.2-3.4) K/uL [place] # (Auto) (0.11-0.59) K/uL Eos # (Auto) (0-0.5) K/uL Baso # (Auto) (0-0.2) K/uL Immature Gran # (Auto) (0.00-0.02) K/uL PT (9.0-12.0) Seconds INR (0.9-1.1) APTT (21.0-31.0) Seconds PTT Ratio Sodium 143 (136-145) mmol/L Potassium 3.6 (3.5-5.1) mmol/L Chloride 110 H (98-107) mmol/L Carbon Dioxide 29 (21-32) mmol/L Anion Gap 4.0 (3-11) BUN 11 (7-18) mg/dl Creatinine 0.72 (0.6-1.2) mg/dl Est Cr Clr Drug Dosing 83.0 ml/min Est GFR ( Amer) 107.7 Est GFR (Non-Af Amer) 93.0 BUN/Creatinine Ratio 15.1 (10-20) Glucose 102 H (70-99) mg/dl Estimat Average Glucose mg/dl Hemoglobin A1c (4.5-5.6) % Calcium 8.0 L (8.5-10.1) mg/dl Albumin (3.4-5.0) gm/dl TSH 0.668 (0.300-4.500) uIu/ml Urine Color Urine Appearance (Clear) Urine pH (4.5-7.5) Ur Specific [place] (1.000-1.030) Urine Protein (Negative) Urine Glucose (UA) (Negative) Urine Ketones (Negative) Urine Blood (Negative) Urine Nitrite (Negative) Urine Bilirubin (Negative) Urine Urobilinogen (Negative) Ur Leukocyte Esterase (Negative) Hepatitis C Ab Screen (Neg) Blood Type Antibody Screen Total Time Total Time Spent Total Time Spent (In Minutes): 20 Discharge Plan Discharge Items Patient Disposition: Home - Self-Care Reason For Visit: Osteoarthritis, Left Knee Discharge Diagnosis: Left knee osteoarthritis Activity: Per Instructions section Non-emergency contact: Surgeon Call non-emergency contact if: you have any medication questions, your pain is not controlled, your pain is worsening, your pain is concerning for you, you have a fever, your temperature is above 101, your wound has increased redness, your wound has increased drainage and your wound pain has increased Follow-up/Referrals: Percy Mario III, CRNP [Primary Care Provider] - Diet: Regular Addtl Attending Provider Instructions: ACTIVITY RECOMMENDATIONS: SELF CARE INSTRUCTIONS AFTER TOTAL KNEE REPLACEMENT A. You may need to continue a physical therapy program after discharge from the hospital. There are several options available to you. Your doctor will assist you in selecting the best one for you. 1. An out-patient facility 2 to 3 times a week for therapy or home therapy. 2. Continue working on all exercises taught to you in the hospital. Your goals should be to increase bending of your knee to 90 degrees and beyond and to fully straighten your knee. B. You may progress at your own pace from walking with a walker or crutches to a cane; then to no assistive devices. C. Make walking a part of your daily routine. Be up as much as comfortable with rest periods throughout the day. Rest with leg elevation is very important. Use the ice wrap frequently for the first 3-4 weeks. D. There are no restrictions on activities. You may ride in a car, shop, participate in senior catering sales manager and all social activities. E. Wear the long elastic stockings (ANDRES hose) 20 hours a day for 2 weeks after surgery. They can be removed several times a day for laundering and for a bath. F. You may shower, no tub baths until cleared by your doctor. SPECIAL CARE INSTRUCTIONS: VERY IMPORTANT TO READ AND REVIEW A. There are a few signs you need to watch for after you are home. Call [facility] [place] if you notice any of the followin. Increased severe knee pain. Some pain is expected especially when you exercise. 2. Increased swelling in your leg or knee; pain or swelling of the calf muscle in either lower leg. 3. Any fluid drainage from the incision. 4. Shortness of breath or chest pain. B. Please call [facility] at if you have any concerns or questions about your operation or recovery. The doctor or his nurse will return your call promptly. C. You must take antibiotics before dental work, bladder, bowel or other surgery. Your doctor will provide you with a permanent care to carry describing this precaution. IMPORTANT: * REMEMBER TO TAKE ASPIRIN, 81 MG, TWICE DAILY FOR 4 WEEKS UNLESS OTHERWISE DIRECTED. THIS IS YOUR BLOOD THINNER. * HIGH RISK PATIENTS MAY BE PRESCRIBED A STRONGER BLOOD THINNER. THIS WILL BE PROVIDED AT DISCHARGE. * CALL IF INCREASED PAIN, REDNESS, DRAINAGE OR FEVER GREATER THAT 101. * WEAR ANDRES HOSE 20 HOURS PER DAY FOR 2 WEEKS. This is a large suction dressing covering your incision. This will help pull any excess drainage from the wound and allow your incision to heal properly. You may shower with this if you can keep the unit outside of the shower. If any bleeding or leakage is noted please call your doctor's office. This will remain on your incision for 7 days and then should be removed. This can be done yourself or by the home nursing staff if applicable. The entire unit is disposable once removed. Once removed, keep incision clean and dry. If redness or drainage is noted, please call your surgeon. FOLLOW UP VISIT: If appointment is not already scheduled: Please call [facility] [place] to make a follow-up appointment for 2 weeks after your surgery at . Addtl It Teacher Provider Instructions: Your oxygen was tested overnight and you did have periods of time where your oxygen dropped below 88% and you have been set up with oxygen to wear at night until formal sleep study can be performed as referred by your primary care provider. Unfortunately barium swallow not able to be completed on the weekend and it is being recommended that you follow up and have this completed as an outpatient with possible video swallow to see if you have a mechanical dysfunction. If this is unrevealing, you may want to consider an outpatient EGD for further investigation. Pending Studies at Discharge: No Stand-Alone Forms: [facility], Opioid Pain Management, Smoking Cessation Medications and DC Order Prescriptions: New celecoxib [Celebrex] 200 mg Capsule 200 mg PO BID Qty: 60 RF: 0 aspirin 81 mg Tablet,Delayed Release (Dr/Ec) 81 mg PO BID Qty: 60 RF: 0 acetaminophen 500 mg Tablet 1,000 mg PO Q8 Qty: 60 RF: 0 oxycodone 5 mg Tablet 5 - 10 mg PO .Q4h-6h MDD 6 PRN (Reason: pain) Qty: 30 RF: 0 cefadroxil 500 mg capsule 500 mg PO BID Qty: 14 RF: 0 Continued zaleplon 10 mg capsule 10 mg PO HS PRN (Reason: Sleep) Qty: 30 RF: 2 cyanocobalamin (vitamin B-12) 1,000 mcg capsule 1,000 mcg PO QAM Qty: 30 RF: 0 cholecalciferol (vitamin D3) 2,000 unit tablet 4,000 units PO QAM RF: 0 duloxetine 60 mg capsule,delayed release(DR/EC) 60 mg PO QAM Qty: 90 RF: 1 Slow-Mag 71.5 mg Tablet,Delayed Release (Dr/Ec) 71.5 mg PO DAILY RF: 0 levothyroxine 75 mcg tablet 75 mcg PO Q OTHER DAY RF: 0 levothyroxine 50 mcg tablet 50 mcg PO Q OTHER DAY RF: 0 Discontinued amoxicillin-pot clavulanate [Augmentin] 875-125 mg tablet 1 tab PO Q12H Qty: 20 RF: 0 prednisone 20 mg tablet 20 mg PO DAILY Qty: 18 RF: 0 levofloxacin 500 mg tablet 500 mg PO DAILY Qty: 5 RF: 0 acetaminophen 500 mg tablet 1,000 mg PO UD PRN (Reason: Pain) RF: 0 naproxen sodium [Aleve] 220 mg Capsule 220 mg PO BID PRN (Reason: Pain) RF: 0 Discharge Orders: Discharge Order (Routine); Ordered 03/05/20 Ordered By: Hira Lazaro/Other Patient Handouts: DVT Post Op Prevention, Prediabetes, Preventing Deep Vein Thrombosis, If Oxygen Is Prescribed, A1C Admission Data Admit Date/Time: 03/02/20 15:46 Attending Provider: Rashaad Menendez Admit Provider: Rashaad Menendez Primary Care Provider: Percy Mario III Other Providers: Narciso Law Other Interventions: Discharge Summary Assessment (RN) Last Done: 03/05/20 11:55
== END 2020-03-05 14:19 | disposition home or self-care (01) | DRG 470 ==
LOC: ASU 10:11 → 3E 10:11 → OBSVTOIN 15:46

== ENCOUNTER 2024-09-03 15:21 | Observation (INO) ==
[2024-09-03 16:13] LABS: Hemoglobin 14.9 g/dl (12.0-16.0); Mean Corpuscular Hemoglobin 30.3 pg (25.0-34.0); Mean Corpuscular Hgb Conc 33.9 g/dL (32.0-36.0); Mean Corpuscular Volume 89.4 fL (80.0-100.0); Mean Platelet Volume 9.8 fL (9.4-12.4); Platelet Count 292 K/uL (130-400); RDW Coefficient of Variation 13.2 % (11.5-14.5); RDW Standard Deviation 42.8 fL (36.4-46.3); Red Blood Count 4.92 M/uL (4.20-5.40)
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
[2024-09-03 16:30] LABS: Albumin Globulin Ratio 1.8 (0.9-2); Albumin Level 4.6 gm/dl (3.4-5.0); BUN Creatinine Ratio 12.7 (10-20); Bilirubin,Total 1.6 mg/dl (0.2-1.0); Calcium 9.7 mg/dl (8.6-10.3); Creatinine Clr Calc Pharmacy 62.4 ml/min; Globulin 2.5 gm/dl (2.5-4.0); Magnesium 2.1 mg/dl (1.7-2.4); Potassium 3.7 mmol/L (3.5-5.1); Total Protein 7.1 gm/dl (6.0-8.3)
[2024-09-03 16:36] LABS: Troponin I High Sensitivity 2.4 pg/ml (0-14)
[2024-09-03 16:41] LABS: Partial Thromboplastin Time 28 Seconds (21-31); Prothrombin Time 11.2 Seconds (9.0-12.0)
--- NOTE | 2024-09-03 16:44 | XRay Report ---
Technique: A frontal view of the chest was obtained Comparison is made to the prior examination dated 02/09/2020 Findings: There are no confluent pulmonary infiltrates. The heart size is within normal limits. No pleural effusion or pneumothorax is seen. There is no definite pulmonary nodule. No fracture is noted. No foreign body is seen Impression: No active disease Electronically signed by Seymour Flores 09-03-2024 4:44 PM
[2024-09-03] MEDS: OPTIRAY 320 125ml IV ONE (17:00)
--- NOTE | 2024-09-03 17:30 | CT Scan Report ---
Clinical History: Headache and blurry vision. Technique: Axial computed tomography images were obtained of the brain from the vertex to the skull base without intravenous contrast. Findings: There is no sign of intracranial hemorrhage. There is normal selby-white matter differentiation with no sign of acute or old infarction. No midline shift or other form of herniation is identified. There is no hydrocephalus. No obvious mass lesion is seen on this noncontrast examination. The visualized portions of the orbits and paranasal sinuses appear unremarkable. The mastoid air cells appear clear Impression: Unremarkable noncontrast CT of the brain Electronically signed by Seymour Flores 09-03-2024 5:30 PM
--- NOTE | 2024-09-03 17:33 | CT Scan Report ---
Clinical history: Headache Technique: Axial computed tomography images were obtained of the brain after the administration of intravenous contrast according to the CT angiogram protocol Findings: There is calcified plaque within the cavernous and supraclinoid segments of the internal carotid arteries bilaterally, without stenosis No definite stenosis or aneurysm is seen of the anterior, middle, or posterior cerebral artery circulations. The visualized vertebral arteries and the basilar artery appear unremarkable Impression: No definite stenosis or aneurysm of the intracranial arteries Electronically signed by Seymour Flores 09-03-2024 5:33 PM
--- NOTE | 2024-09-03 17:35 | CT Scan Report ---
Clinical history: Headache Technique: Axial computed tomography images were obtained of the neck after the administration of intravenous contrast according to the CT angiogram protocol Findings: No stenosis is seen of the common carotid arteries bilaterally. The carotid bulbs appear normal. The remainder of the internal carotid arteries appear patent bilaterally. No stenosis of the external carotid arteries is seen The vertebral arteries are patent bilaterally with no significant stenosis seen. The visualized thoracic aorta appears unremarkable There are 2 apparent nodules in the right thyroid lobe. There is multilevel degenerative disc disease and osteoarthritis of the cervical spine Impression: 1. No apparent stenosis of the neck arteries 2. Indeterminate thyroid nodules. A thyroid ultrasound could be obtained for further evaluation ACT 112: Positive. There are findings on this exam that require communication between the performing entity and the patient following Patient Test Result Information Act ([place] ACT 112) guidelines. Electronically signed by Seymour Flores 09-03-2024 5:35 PM
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
[2024-09-03] MEDS: ASPIRIN CHEW 324 MG PO STA (18:34)
[2024-09-03] MEDS: CLOPIDOGREL BISULFATE 300 MG TAB PO STA (18:35)
[2024-09-03] MEDS ORDERED: PHARMACIST DISCHARGE MED REC CONSULT PRN (18:37)
[2024-09-03] MEDS ORDERED: ACETAMINOPHEN 325 MG TAB PO PRN (20:56)
[2024-09-03] MEDS: ATORVASTATIN 40 MG TAB PO SCH (21:19)
[2024-09-03] MEDS: MAGNESIUM CHLORIDE W/CALCIUM 64MG DELAYED REL TAB PO SCH (21:19)
[2024-09-03] MEDS: LEVOTHYROXINE SODIUM 75 MCG TABLET PO SCH (21:19)
--- NOTE | 2024-09-03 21:31 | Magnetic Resonance Report ---
Exam(s): MRI HEAD Without Contrast EXAM: MR Head Without Intravenous Contrast CLINICAL HISTORY: Reason for exam: CVA r/o. TECHNIQUE: Magnetic resonance images of the head/brain without intravenous contrast in multiple planes. COMPARISON: Head CT from earlier today FINDINGS: Brain: Unremarkable. No mass. No hemorrhage. No acute infarct. Ventricles: Unremarkable. No ventriculomegaly. Bones/joints: Unremarkable. No acute fracture. Sinuses: Unremarkable as visualized. No acute sinusitis. Mastoid air cells: Unremarkable as visualized. No mastoid effusion. Orbits: Unremarkable as visualized. IMPRESSION: Normal head/brain MRI. Electronically signed by: Iglesia Traore MD 09/03/24 21:30 PM
[2024-09-04 00:23] LABS: Hep B Core Total Antibody Positive (Negative)
[2024-09-04 00:29] LABS: Hep B Surface Ag with confirm Negative (Negative)
[2024-09-04 00:38] LABS: Hepatitis B Surface Ab Quant > 500.00 mIU/mL (>or=10mIU/mL Immune); Hepatitis B Surface Antibody Immune
[2024-09-04 06:47] LABS: Basophils # (auto) 0.04 K/uL (0.00-0.20); Basophils % (auto) 0.6 %; Eosinophils # (auto) 0.12 K/uL (0.00-0.50); Eosinophils % (auto) 1.9 %; Hematocrit (blood only) 42.6 % (37.0-47.0); Hemoglobin 14.3 g/dl (12.0-16.0); Immature Granulocytes # (auto) 0.01 K/uL (0.01-0.20); Immature Granulocytes % (auto) 0.2 %; Lymphocytes # (auto) 1.93 K/uL (1.20-3.40); Lymphocytes % (auto) 30.6 %; Mean Corpuscular Hemoglobin 30.6 pg (25.0-34.0); Mean Corpuscular Hgb Conc 33.6 g/dL (32.0-36.0); Mean Corpuscular Volume 91.2 fL (80.0-100.0); Mean Platelet Volume 9.7 fL (9.4-12.4); Monocytes # (auto) 0.53 K/uL (0.11-0.59); Monocytes % (auto) 8.4 %; Neutrophils # (auto) 3.68 K/uL (1.40-6.50); Neutrophils % (auto) 58.3 %; Platelet Count 266 K/uL (130-400); RDW Coefficient of Variation 13.2 % (11.5-14.5); RDW Standard Deviation 44.1 fL (36.4-46.3); Red Blood Count 4.67 M/uL (4.20-5.40); White Blood Count 6.31 K/ul (4.8-10.8)
[2024-09-04 07:11] LABS: BUN Creatinine Ratio 12.2 (10-20); Calcium 9.4 mg/dl (8.6-10.3); Chol HDL Ratio 3.3 (0-5); Creatinine Clr Calc Pharmacy 54.4 ml/min; Potassium 3.9 mmol/L (3.5-5.1)
[2024-09-04 07:17] LABS: Estimated Average Glucose 103 mg/dl; Hemoglobin A1C 5.2 % (4.5-5.6)
--- NOTE | 2024-09-04 07:17 | Electrocardiogram Report ---
Test Reason : Blood Pressure : */* mmHG Vent. Rate : 74 BPM Atrial Rate : 74 BPM P-R Int : 164 ms QRS Dur : 80 ms QT Int : 384 ms P-R-T Axes : 55 70 55 degrees QTcB Int : 426 ms Normal sinus rhythm Normal ECG When compared with ECG of 02-Feb-2019 15:49, No significant change was found Confirmed by Gera Mcallister ([id number]) on 09/04/2024 7:17:03 AM Referred By: REFERRED SELF Confirmed By: Gera Mcallister
[2024-09-04 07:46] VITALS: PULSE 81; RESP 18; TEMP 97.5; O2SAT 96
--- NOTE | 2024-09-04 07:49 | Discharge Summary ---
Discharge Summary Date of Service September 04, 2024 Principal Dx & Hospital Course #1 = Principal Diagnosis (1) TIA (transient ischemic attack): 64-year-old female history of metabolic syndrome who presents with vision change with some? Dysarthria, 2 episodes improved by time of evaluation the preceding week concerning for stuttering TIA. Admitted for stroke evaluation TIA versus CVA Strong family history of CVA, no personal history of CVA ABCD2 score 6 points (age greater than 60, diastolic greater than 90, speech disturbance without weakness, duration of symptoms lasting greater than 30 minutes, any history of borderline diabetes. High risk Due to high risk possible stuttering TIA DAPT load was ordered. Vision changes and aphasia/dysarthria have improved however she does have induction of diplopia in the left eye only on lateral gaze MRI was negative. Patient reported symptoms were improved Last LDL 154. Atorvastatin 80 mg ordered. On recheck cholesterol 198, LDL 118. Continue atorvastatin 80 mg, recheck lipids as outpatient Troponin normal Sinus rhythm. No history of A-fib. Ultrasound read was pending at time of discharge. Can follow-up on the results of this as outpatient once available Continue aspirin/Plavix dual antiplatelet therapy for 3 weeks, then may switch to aspirin monotherapy at that time Outpatient neurology follow-up Hypothyroidism Continue Synthroid Follow-up outpatient for thyroid nodules Anxiety/depression Continue citalopram History of prediabetes A1c 6.1 in 06/2023, repeat was normal at 5.1. Has generally ranged 5.76.1 in the past BSG 85 Trend BSG daily. If greater than 180 add SSI Repeat A1c pending DVT prophylaxis: Lovenox Disposition: PCU CODE STATUS: Full code Diet: Heart healthy (2) Hyperlipidemia: (3) Viral hepatitis B: (4) Multiple thyroid nodules: (5) Hypothyroidism: Admission HPI Per Admitting Provider Opal is a 64-year-old female with a past medical history of prediabetes, hyperlipidemia, hypothyroidism, hearing loss, metabolic syndrome who presents with 2 episodes of blurry vision in the preceding week and with difficulty expressing words? Dysarthria. Abrupt onset of symptoms day of admission 09/03 at 11 AM, symptoms resolved after 2 hours. The prior episode earlier in the week which was similar. Turns raise for stuttering TIA, has been recommended for stroke evaluation. CThead, CTAhead/neck: No vascular occlusion/stenoses. Indeterminate thyroid nodules were noted. 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 Came on suddenly and was associated with b/l blurry vision with 'rainbow like prisms.' Lasted about 15-30 minutes hours then improved. Has a headache today which is unusual for her. Had a similar episode of sudden vision change the same as this earlier in the week, but no dysarthria at that time but notes she was alone in her office so wasn't trying to speak. Denies extremity weakness or sensation change. Gets chronic neck injections fo ra bad disc which is been bothering her, but similar pain to her prior. No prior hx of strokes/TIA Her father had 11 siblings, 10 had strokes. Father had stroke ~age 62. Mother had a stroke in 90s. L eye peripheral gaze induces double vision. Medical History: Reviewed Medications: Reviewed Surgical History: Reviewed Family history: Reviewed Allergies: Reviewed Social History: No tobacco use. Rare social etoh use. Code Status: Full Code Discharge Exam General: A&Ox3. NAD. Cooperative. HEENT: Atraumatic, normocephalic. Pulm: Clear. Symmetrical chest rise. No increased work of breathing. No respira tory distress. Cardiac: RRR. Radial pulses intact and symmetrical. CRANIAL NERVES: II/III: Pupils equal and reactive, no relative afferent pupillary defect. EOM intact without nystagmus. On far lateral gaze with right eye covered left peripheral vision is with diplopia. No field cuts. V: normal sensation in V1, V2, and V3 segments bilaterally VII: no asymmetry, no nasolabial fold flattening VIII: normal hearing to speech IX, X: normal palatal elevation, no uvular deviation XI: 5/5 head turn and 5/5 shoulder shrug bilaterally XII: midline tongue protrusion MOTOR: RUE: 5/5 Shoulder internal rotation, external rotation, flexion, extension, abduction, adduction 5/5 Elbow flexion/extension, wrist flexion/extension 5/5 machine maintenance strength, finger flexion/extension, interosseus LUE: 5/5 Shoulder internal rotation, external rotation, flexion, extension, abduction, adduction 5/5 Elbow flexion/extension, wrist flexion/extension 5/5 machine maintenance strength, finger flexion/extension, interosseus RLE: 5/5 to hip flexion, knee flexion/extension, ankle dorsiflexion/plantarflexion LLE: 5/5 to hip flexion, knee flexion/extension, ankle dorsiflexion/plantarflexion SENSORY: Normal to touch in upper and lower extremities without deficit or asymmetry Discharge Plan Discharge Items Patient Disposition: Home - Self-Care Reason For Visit: TIA/CVA EVAL Discharge Diagnosis: TIA Condition on Discharge: Fair Activity: Resume your previous activity Non-emergency contact: Primary Care Provider and Neurologist Call non-emergency contact if: you have any medication questions and your symptoms worsen Follow-up/Referrals: Yoan Ngo MD [Physician] - [place] DO [Primary Care Provider] - Diet: Heart Healthy Addtl Attending Provider Instructions: You are seen in the hospital for evaluation of suspected strokelike symptoms. CT scan of your head and neck did not show any abnormalities. A follow-up MRI did not show evidence of stroke. Your symptoms were highly concerning for a recurrent TIA. This can sometimes be a warning sign of an impending stroke. Your ABCD2 score (a predictive model which uses information about you to predict your risk of recurrent stroke) was very high risk. Due to this it was recommended that you be continued on aspirin/Plavix together for 3 weeks. After 3 weeks you may switch to aspirin alone. Follow-up is being scheduled for you with neurology. Please take aspirin 81 mg once daily. This is an antiplatelet medication Please take Plavix 75 mg by mouth once daily. This is an antiplatelet medication that you can take with aspirin. After 3 weeks, you may stop taking Plavix and take aspirin alone. You have been prescribed a cholesterol medication, atorvastatin. This lowers the risk of stroke both by lowering cholesterol and also stabilizing plaques already existing on blood vessel ruiz when the medication is used at moderatehigh doses. Please take atorvastatin 80 mg by mouth daily. You will need blood work to be checked including a LFT panel by your primary care physician in approximately 2-3 weeks. This can rarely cause muscle aches/myalgias in some patients. If you develop muscle aches wellness medication please contact your primary care provider for recommendations. Your blood pressure was adequately controlled at time of discharge. You had an ultrasound performed to look for a congenital abnormality which can cause a stroke in some people. Final results of this were pending at time of discharge. Please follow-up on the final results of this with your primary care physician If you develop any new or worsening symptoms including fever, chills, sweats, chest pain, chest pressure, difficulty breathing, uncontrolled nausea/vomiting, rash, wheezing, passing out or nearly passing out, bleeding, black/bloody bowel movements, or other new or concerning symptoms please call your primary care physician, or call 911 for re-evaluation in the emergency department if you are very concerned. Pending Studies at Discharge: No Stand-Alone Forms: My [facility], Smoking Cessation Medications and DC Order Prescriptions: New atorvastatin 40 mg Tablet 80 mg PO QAM Qty: 30 0RF clopidogrel 75 mg Tablet 75 mg PO QAM Qty: 21 0RF aspirin 81 mg Tablet,Delayed Release (Dr/Ec) 81 mg PO QAM Qty: 90 0RF Continued medical marijuana 1 dose PO UD PRN (Reason: Sleep) amoxicillin 500 mg tablet 2,000 mg PO ONCE Qty: 4 3RF Rx Instructions: 4 tabs 1 hour prior to procedure omeprazole 40 mg capsule,delayed release(DR/EC) 40 mg PO QAM Qty: 90 1RF tirzepatide (weight loss) 10 mg/0.5 mL pen injector 10 mg subcut Q7D Qty: 2 2RF Rx Instructions: cholecalciferol (vitamin D3) 2,000 unit tablet 4,000 units PO QAM cyanocobalamin (vitamin B-12) 1,000 mcg capsule 1,000 mcg PO .QOD Qty: 30 celecoxib 200 mg capsule 200 mg PO AMHS acetaminophen 500 mg tablet 1,000 mg PO Q8 PRN (Reason: Fever Or Pain) Slow-Mag 71.5 mg Tablet,Delayed Release (Dr/Ec) 71.5 mg PO PM citalopram 10 mg tablet 10 mg PO QAM levothyroxine 75 mcg tablet 75 mcg PO HS Discharge Orders: Discharge Order (Routine); Ordered 09/04/24 Ordered By: Rashaad Martin Admission Data Admit Date/Time: 09/03/24 18:45 Attending Provider: Rashaad Martin Admit Provider: Rashaad Martin Primary Care Provider: [place] Other Providers: Rashaad Martin Hospital Stay Data Consultations 09/03/24 17:42 ED Decision to Admit Stat Diagnostic Imagining Performed 09/03/24 15:56 CTA head w con [CT angio head w con] Stat CTA neck with con [CT angio neck with con] Stat 09/03/24 15:57 CT head/brain wo con Stat 09/03/24 18:37 MR brain wo con Routine Discharge Instructions Given to Patient (Per Discharging Provider) You are seen in the hospital for evaluation of suspected strokelike symptoms. CT scan of your head and neck did not show any abnormalities. A follow-up MRI did not show evidence of stroke. Your symptoms were highly concerning for a recurrent TIA. This can sometimes be a warning sign of an impending stroke. Your ABCD2 score (a predictive model which uses information about you to predict your risk of recurrent stroke) was very high risk. Due to this it was recommended that you be continued on aspirin/Plavix together for 3 weeks. After 3 weeks you may switch to aspirin alone. Follow-up is being scheduled for you with neurology. Please take aspirin 81 mg once daily. This is an antiplatelet medication Please take Plavix 75 mg by mouth once daily. This is an antiplatelet medication that you can take with aspirin. After 3 weeks, you may stop taking Plavix and take aspirin alone. You have been prescribed a cholesterol medication, atorvastatin. This lowers the risk of stroke both by lowering cholesterol and also stabilizing plaques already existing on blood vessel ruiz when the medication is used at moderatehigh doses. Please take atorvastatin 80 mg by mouth daily. You will need blood work to be checked including a LFT panel by your primary care physician in approximately 2-3 weeks. This can rarely cause muscle aches/myalgias in some patients. If you develop muscle aches wellness medication please contact your primary care provider for recommendations. Your blood pressure was adequately controlled at time of discharge. You had an ultrasound performed to look for a congenital abnormality which can cause a stroke in some people. Final results of this were pending at time of discharge. Please follow-up on the final results of this with your primary care physician If you develop any new or worsening symptoms including fever, chills, sweats, chest pain, chest pressure, difficulty breathing, uncontrolled nausea/vomiting, rash, wheezing, passing out or nearly passing out, bleeding, black/bloody bowel movements, or other new or concerning symptoms please call your primary care physician, or call 911 for re-evaluation in the emergency department if you are very concerned. Total Time Total Time Spent Total Time Spent (In Minutes): Time spend day of discharge 35 minutes including direct patient care, documentation, review of labs and images, and coordination of care. Coding Level of Care Code 31212 INP/OBS DISCH >30 MIN Diagnoses TIA (transient ischemic attack) G45.9 Hyperlipidemia E78.5 Viral hepatitis B B19.10 Multiple thyroid nodules E04.2 Hypothyroidism E03.9
[2024-09-04] MEDS: CITALOPRAM 20 MG TAB PO SCH (08:17)
[2024-09-04] MEDS: CHOLECALCIFEROL 25 MCG (1000 UNITS) TAB PO SCH (08:17)
[2024-09-04] MEDS: PANTOprazole 40 MG TAB PO SCH (08:17)
[2024-09-04] MEDS: CLOPIDOGREL BISULFATE 75 MG TAB PO SCH (08:18)
[2024-09-04] MEDS: ENOXAPARIN INJ 40 MG/0.4 ML SYR SQ SCH (08:18)
[2024-09-04] MEDS: ASPIRIN 81 MG ECTAB PO SCH (08:18)
[2024-09-04 09:44] VITALS: BP 113/73
[2024-09-04] MEDS: STROKE PATIENT DISCHARGE STA (10:30)
--- NOTE | 2024-09-04 13:15 | XCELERA ---
[id number]
--- NOTE | 2024-09-06 14:40 | Pharmacy Report ---
Pharmacist Stroke Counseling - Date of Service September 06, 2024 - Scope: Pharmacy has been consulted to provide medication discharge counseling for this patient admitted with possible transient ischemic attack as per the Pharmacist Discharge Counseling for Stroke Patients Protocol. - Medications on Discharge: Home Medications Medication Instructions Recorded Confirmed cholecalciferol (vitamin D3) 50 4,000 units PO QAM 11/27/18 09/06/24 mcg (2,000 unit) tablet magnesium chloride 71.5 mg 71.5 mg PO PM 10/01/19 09/06/24 (magnesium chloride) tablet,delayed release (Slow-Mag) acetaminophen 500 mg tablet 1,000 mg PO Q8 PRN Fever Or Pain 09/29/23 09/06/24 cyanocobalamin (vitamin B-12) 1,000 mcg PO .QOD #30 caps 09/29/23 09/06/24 1,000 mcg capsule celecoxib 200 mg capsule 200 mg PO [facility] 08/11/24 09/06/24 medical marijuana 1 dose PO UD PRN Sleep 08/11/24 09/06/24 citalopram 10 mg tablet 10 mg PO QAM 09/03/24 09/06/24 levothyroxine 75 mcg tablet 75 mcg PO HS 09/03/24 09/06/24 ADK-10 PO DAILY 09/06/24 Potassium Gummies See Rx Instructions PO DAILY 09/06/24 potassium citrate PO DAILY 09/06/24 09/06/24 New Rx's Medication Instructions Recorded amoxicillin 500 mg tablet 2,000 mg (4 x 500 mg) PO ONCE #4 07/09/22 tabs omeprazole 40 mg capsule,delayed 40 mg PO QAM #90 caps 03/24/24 release tirzepatide (weight loss) 10 10 mg (0.5 mL) subcut Q7D #2 mL 06/24/24 mg/0.5 mL subcutaneous pen injector aspirin 81 mg tablet,delayed 81 mg PO QAM #90 tabs 09/04/24 release atorvastatin 40 mg tablet 80 mg (2 x 40 mg) PO QAM #30 tabs 09/04/24 clopidogrel 75 mg tablet 75 mg PO QAM #21 tabs 09/04/24 - Action: The above medications, specifically ones for stroke treatment/prophylaxis, have been reviewed in detail with the patient and/or patient pest control service representative(s) prior to discharge. This includes indication, common adverse reactions, drug interactions, and medication administration. Medication counseling has been employed using the teach-back method to ensure understanding. - Outcome: The patient and/or patient pest control service representative(s) have demonstrated understanding of the medications. Additional comments: Patient instructed at discharge to take aspirin 81mg + clopidogrel 75mg po daily x 3 weeks, then aspirin 81mg daily alone after and atorvastatin 80mg po daily. Medications explained including indication, importance of taking as prescribed, and possible side effects. Patient expressed understanding and had no further questions. Thank you for allowing pharmacy to be involved in the care of this patient. Please call [phone] with any additional questions
== END 2024-09-04 12:02 | disposition home or self-care (01) ==
LOC: 2N 15:21 → ED 15:21 → 2N 20:23